=== PATIENT | male | born 1940 | race Caucasian/White ===

== ENCOUNTER → 2016-08-27 | Outpatient (CLI) | payer MEDICARE, OTHER ==
[~2016-08-27] MED LIST: /AMLO25TA OR; /QUIN10TA OR; ACET50TA PO; CALC600T34 PO; CORE25TA PO; FOLI800T PO; GLUC250C5 PO; LIPI10TA PO; MULTTAB4 PO; OMEG12002 PO; PERCOCET PO; TIKO500C PO; VITA500047 PO; WARF2.5T38 PO; nitroglycerine SL
[2016-08-27 09:25] LABS: MEAN CORPUSCULAR HEMOGLOBIN 29.5 pg (27.0-33.0); MEAN CORPUSCULAR VOLUME 89.6 fl (80.0-96.0); RED CELL DISTRIBUTION WIDTH 12.7 % (11.5-14.5); WHITE BLOOD COUNT 4.9 K/mm3 (4.0-10.0)
[2016-08-27 09:34] LABS: ALBUMIN/GLOBULIN RATIO 1.21 (1.00-1.93); BILIRUBIN,TOTAL 0.7 MG/DL (0.2-1.0); CALCIUM LEVEL 8.5 MG/DL (8.8-10.2); CREATININE FOR GFR 1.26 MG/DL (0.70-1.30); FREE T4 1.19 NG/DL (0.76-1.46); GLOMERULAR FILTRATION RATE 59.1 (>42); POTASSIUM SERUM 4.5 MEQ/L (3.5-5.1); TOTAL PROTEIN 7.3 GM/DL (6.4-8.2)
== END ==
LOC: M LAB 08:02
PROVIDERS: ATTEND Physician Assistant
DX: Z00.00 Encounter for general adult medical examination without abnormal findings (principal); R35.1 Nocturia; I48.0 Paroxysmal atrial fibrillation; Z79.01 Long term (current) use of anticoagulants
CPT/HCPCS: 36415; 80053; 84439; 84443; 85027; G0103

== ENCOUNTER → 2016-09-25 | Outpatient (CLI) | payer MEDICARE, OTHER ==
[2016-09-25 09:47] LABS: ANION GAP 7 MEQ/L (8-16); BLOOD UREA NITROGEN 23 MG/DL (7-18); CALCIUM LEVEL 8.5 MG/DL (8.8-10.2); CARBON DIOXIDE LEVEL 28 MEQ/L (21-32); CHLORIDE LEVEL 106 MEQ/L (98-107); CREATININE FOR GFR 1.13 MG/DL (0.70-1.30); GLOMERULAR FILTRATION RATE > 60.0 (>42); GLUCOSE, FASTING 146 MG/DL (83-110); MAGNESIUM LEVEL 2.2 MG/DL (1.8-2.4); POTASSIUM SERUM 4.1 MEQ/L (3.5-5.1); SODIUM LEVEL 141 MEQ/L (136-145)
== END ==
LOC: M LAB 09:04
PROVIDERS: ATTEND Internal Medicine Cardiovascular Disease
DX: I48.91 Unspecified atrial fibrillation (principal)

== ENCOUNTER → 2016-12-28 | Outpatient (CLI) | payer MEDICARE, OTHER ==
[2016-12-28 09:12] LABS: BASO # 0.1 K/mm3 (0.0-0.2); EOS # 0.1 K/mm3 (0.0-0.50); EOS % 1.7 % (0.0-3.0); LARGE UNSTAINED CELL # 0.1 K/mm3 (0.0-0.4); LARGE UNSTAINED CELL % 2.2 % (0.0-4.0); LYMPH # 1.3 K/mm3 (1.5-4.5); LYMPH % 23.3 % (24.0-44.0); MEAN CORPUSCULAR HGB CONC 34.4 g/dl (32.0-36.5); MEAN CORPUSCULAR VOLUME 90.1 fl (80.0-96.0); MONO # 0.3 K/mm3 (0.0-0.8); MONO % 5.7 % (0.0-5.0); NEUTROPHILS # 3.8 K/mm3 (1.8-7.7); NEUTROPHILS % 66.1 % (36.0-66.0); PLATELET COUNT, AUTOMATED 167 k/mm3 (150-450); RED CELL DISTRIBUTION WIDTH 12.8 % (11.5-14.5); WHITE BLOOD COUNT 5.7 K/mm3 (4.0-10.0)
[2016-12-28 09:29] LABS: CHOLESTEROL LEVEL 105 MG/DL (<200); FERRITIN 130 NG/ML (26-388); PERCENT SATURATION 24.3 % (19.7-37.4); TOTAL IRON BINDING CAPACITY 284 UG/DL (250-450); TRIGLYCERIDES LEVEL 92 MG/DL (<150)
[2016-12-28 10:06] LABS: FOLATE > 24.0 NG/ML (>5.4); VITAMIN B12 LEVEL 378 PG/ML (247-911)
== END ==
LOC: M LAB 08:03
PROVIDERS: ATTEND Family Medicine
DX: D64.9 Anemia, unspecified (principal); R78.9 Finding of unspecified substance, not normally found in blood; I10 Essential (primary) hypertension; R73.01 Impaired fasting glucose

== ENCOUNTER 2017-05-07 12:00 | Day surgery (SDC) | payer MEDICARE, OTHER ==
[~2017-05-07] VITALS: Ht 170.2 cm; Wt 73.8 kg
[~2017-05-07 12:00] MED LIST changes: +FISH120012 PO; +LASI20TA PO; +MAGN1CAP PO; +VITA1CAP40 PO; +VITA500T53 PO
[2017-05-07] MEDS ORDERED: PROPOFOL 200 MG/20 ML VIAL As Ordered ONE (12:24)
[2017-05-07] MEDS ORDERED: LIDOCAINE 2% INJ 100 MG/5 ML SDV (FOR ANES.) As Ordered ONE (12:24)
[2017-05-07] MEDS: LR 1,000 ML IV SCH (12:45)
[2017-05-07] MEDS ORDERED: ePHEDrine SULFATE 25 MG/5 ML(5MG/ML) SYRINGE As Ordered ONE (13:24)
--- NOTE | 2017-05-07 14:08 | ROOR ---
Patient Name: Jaskaran Jacobo Procedure Date: 05/07/2017 1:15 PM Date of : 1940 Age: 76 Room: [facility] Gender: Male Note Status: Finalized Procedure: Colonoscopy Indications: High risk colon cancer surveillance: Personal history of sessile serrated colon polyp (less than 10 mm in size) with no dysplasia, Last colonoscopy: June 2014 Providers: Anival Santos MD Referring MD: Catherine HOLDER DO Requesting Provider: Medicines: Monitored Anesthesia Care Complications: No immediate complications. Procedure: Pre-Anesthesia Assessment: - Prior to the procedure, a History and Physical was performed, and patient medications and allergies were reviewed. The patient is competent. The risks and benefits of the procedure and the sedation options and risks were discussed with the patient. All questions were answered and informed consent was obtained. Patient identification and proposed procedure were verified by the physician, the nurse and the anesthesiologist in the procedure room. Mental Status Examination: alert and oriented. Airway Examination: normal oropharyngeal airway and neck mobility. CV Examination: regular rate and rhythm. Prophylactic Antibiotics: The patient does not require prophylactic antibiotics. Prior Anticoagulants: The patient has taken Coumadin (warfarin), last dose was 3 days prior to procedure. ASA Grade Assessment: III - A patient with severe systemic disease. After reviewing the risks and benefits, the patient was deemed in satisfactory condition to undergo the procedure. The anesthesia plan was to use monitored anesthesia care (MAC). Immediately prior to administration of medications, the patient was re-assessed for adequacy to receive sedatives. The heart rate, respiratory rate, oxygen saturations, blood pressure, adequacy of pulmonary ventilation, and response to care were monitored throughout the procedure. The physical status of the patient was re-assessed after the procedure. The Colonoscope was introduced through the anus and advanced to the cecum, identified by appendiceal orifice and ileocecal valve. The colonoscopy was performed without difficulty. The patient tolerated the procedure well. The quality of the bowel preparation was good. Findings: The perianal and digital rectal examinations were normal. Many large-mouthed diverticula were found in the sigmoid colon, descending colon, splenic flexure, transverse colon and hepatic flexure. A 6 mm polyp was found in the proximal transverse colon. The polyp was sessile. The polyp was removed with a hot snare. Resection and retrieval were complete. A 4 mm polyp was found in the mid transverse colon. The polyp was sessile. The polyp was removed with a hot snare. Resection and retrieval were complete. Impression: - Diverticulosis in the sigmoid colon, in the descending colon, at the splenic flexure, in the transverse colon and at the hepatic flexure. - One 6 mm polyp in the proximal transverse colon, removed with a hot snare. Resected and retrieved. - One 4 mm polyp in the mid transverse colon, removed with a hot snare. Resected and retrieved. Recommendation: - Await pathology results. - Discharge patient to home. - Resume previous diet. - Continue present medications. - Telephone endoscopist for pathology results in 1 week. Anival Santos MD 05/07/2017 2:08:33 PM Number of Addenda: 0 Note Initiated On: 05/07/2017 1:15 PM Estimated Blood Loss: Estimated blood loss: none.
[2017-05-07 14:20] VITALS: BP 134/67
== END 2017-05-07 14:25 | disposition home or self-care (01) ==
LOC: M OPP 12:00
PROVIDERS: ATTEND Surgery
DX: Z12.11 Encounter for screening for malignant neoplasm of colon (principal); Z86.010 Personal history of colon polyps; D12.3 Benign neoplasm of transverse colon; K57.30 Diverticulosis of large intestine without perforation or abscess without bleeding; I48.91 Unspecified atrial fibrillation; I25.119 Atherosclerotic heart disease of native coronary artery with unspecified angina pectoris; I34.0 Nonrheumatic mitral (valve) insufficiency; I10 Essential (primary) hypertension; Z95.1 Presence of aortocoronary bypass graft; Z95.2 Presence of prosthetic heart valve; E78.5 Hyperlipidemia, unspecified; Z86.19 Personal history of other infectious and parasitic diseases; M19.90 Unspecified osteoarthritis, unspecified site; R06.83 Snoring; Z85.828 Personal history of other malignant neoplasm of skin; Z87.442 Personal history of urinary calculi; Z96.651 Presence of right artificial knee joint; Z79.01 Long term (current) use of anticoagulants; Z79.899 Other long term (current) drug therapy

== ENCOUNTER → 2017-07-02 | Outpatient (CLI) | payer MEDICARE, OTHER ==
[2017-07-02 13:55] LABS: ALBUMIN 4.2 GM/DL (3.2-5.2); ALBUMIN/GLOBULIN RATIO 1.27 (1.00-1.93); ALKALINE PHOSPHATASE 66 U/L (45-117); ALT/SGPT 23 U/L (12-78); ANION GAP 7 MEQ/L (8-16); AST/SGOT 19 U/L (7-37); BILIRUBIN,TOTAL 0.9 MG/DL (0.2-1.0); BLOOD UREA NITROGEN 28 MG/DL (7-18); CALCIUM LEVEL 8.8 MG/DL (8.8-10.2); CARBON DIOXIDE LEVEL 28 MEQ/L (21-32); CHLORIDE LEVEL 107 MEQ/L (98-107); CREATININE FOR GFR 1.11 MG/DL (0.70-1.30); GLOMERULAR FILTRATION RATE > 60.0 (>42); GLUCOSE, FASTING 105 MG/DL (83-110); MAGNESIUM LEVEL 2.3 MG/DL (1.8-2.4); POTASSIUM SERUM 4.9 MEQ/L (3.5-5.1); SODIUM LEVEL 142 MEQ/L (136-145); TOTAL PROTEIN 7.5 GM/DL (6.4-8.2)
[2017-07-02 14:31] LABS: ESTIMATED AVERAGE GLUCOSE 128 MG/DL (60-110); HEMOGLOBIN A1c 6.1 %
[2017-07-11 16:00] LABS: PSA SCREENING 0.53 NG/ML (< 4.0)
== END ==
LOC: M WUC 09:31
DX: Z00.01 Encounter for general adult medical examination with abnormal findings (principal); I49.9 Cardiac arrhythmia, unspecified; R73.9 Hyperglycemia, unspecified; Z12.5 Encounter for screening for malignant neoplasm of prostate
CPT/HCPCS: 83735

== ENCOUNTER → 2018-04-24 | Day surgery (SDC) | payer MEDICARE, OTHER ==
[~2018-04-24] MED LIST changes: -/AMLO25TA OR; -/QUIN10TA OR; -ACET50TA PO; -CALC600T34 PO; -CORE25TA PO; -FISH120012 PO; -FOLI800T PO; -GLUC250C5 PO; -LASI20TA PO; -LIPI10TA PO; +LR 1,000 ML IV; -MAGN1CAP PO; -MULTTAB4 PO; -OMEG12002 PO; -PERCOCET PO; -TIKO500C PO; -VITA1CAP40 PO; -VITA500047 PO; -VITA500T53 PO; -WARF2.5T38 PO; -nitroglycerine SL
[2018-04-24 06:54] LABS: PROTHROMBIN TIME 26.7 SECONDS (12.1-14.4)
== END | disposition home or self-care (01) ==
LOC: M SDC 06:05
DX: I48.92 Unspecified atrial flutter (principal); Z53.09 Procedure and treatment not carried out because of other contraindication; I49.8 Other specified cardiac arrhythmias
CPT/HCPCS: 93005

== ENCOUNTER → 2018-07-10 | Outpatient (CLI) | payer MEDICARE, OTHER ==
[~2018-07-10] MED LIST changes: +/AMLO25TA OR; +/QUIN10TA OR; +ACET50TA PO; +CALC1TAB26 PO; +CALC600T34 PO; +CORE25TA PO; +CORE6.25 PO; +COUM2.5T17 PO; +FISH120012 PO; +FOLI400T PO; +FOLI800T PO; +GLUC250C5 PO; +LASI20TA3 PO; +LIPI10TA PO; -LR 1,000 ML IV; +MAGN1CAP PO; +MAGN500C2 PO; +MULT1TAB10 PO; +MULTTAB4 PO; +NORV5TAB PO; +OMEG12002 PO; +PERCOCET PO; +TIKO250C PO; +TIKO500C PO; +VITA500047 PO; +VITA50005 PO; +VITA500T53 PO; +WARF2.5T38 PO; +nitroglycerine SL
[2018-07-10 13:40] LABS: BLOOD UREA NITROGEN 24 MG/DL (7-18); CALCIUM LEVEL 8.6 MG/DL (8.8-10.2); CARBON DIOXIDE LEVEL 26 MEQ/L (21-32); CHLORIDE LEVEL 105 MEQ/L (98-107); CREATININE FOR GFR 1.14 MG/DL (0.70-1.30); GLOMERULAR FILTRATION RATE > 60.0 (>42); GLUCOSE, FASTING 101 MG/DL (70-100); MAGNESIUM LEVEL 1.9 MG/DL (1.8-2.4); POTASSIUM SERUM 4.4 MEQ/L (3.5-5.1); SODIUM LEVEL 139 MEQ/L (136-145)
== END ==
LOC: M WUC 10:33
PROVIDERS: ATTEND Internal Medicine Cardiovascular Disease
DX: I25.10 Atherosclerotic heart disease of native coronary artery without angina pectoris (principal); I48.0 Paroxysmal atrial fibrillation

== ENCOUNTER → 2018-08-08 | Outpatient (CLI) | payer MEDICARE, OTHER ==
[2018-08-08 13:17] LABS: BASO % 0.5 % (0.0-1.0); EOS # 0.2 10^3/uL (0.0-0.50); EOS % 2.4 % (0.0-3.0); HEMATOCRIT 34.8 % (42.0-52.0); HEMOGLOBIN 11.9 g/dl (13.5-17.5); LYMPH # 1.4 10^3/uL (1.5-4.5); LYMPH % 22.4 % (24.0-44.0); MEAN CORPUSCULAR HEMOGLOBIN 30.8 pg (27.0-33.0); MEAN CORPUSCULAR HGB CONC 34.2 g/dl (32.0-36.5); MEAN CORPUSCULAR VOLUME 90.2 fl (80.0-96.0); MONO # 0.4 10^3/uL (0.0-0.8); MONO % 6.7 % (0.0-5.0); NEUTROPHILS # 4.3 10^3/uL (1.8-7.7); NEUTROPHILS % 67.8 % (36.0-66.0); PLATELET COUNT, AUTOMATED 175 10^3/uL (150-450); RED BLOOD COUNT 3.86 10^6/uL (4.30-6.10); WHITE BLOOD COUNT 6.3 10^3/uL (4.0-10.0)
[2018-08-08 13:47] LABS: ALBUMIN 3.8 GM/DL (3.2-5.2); ALT/SGPT 25 U/L (12-78); BILIRUBIN,TOTAL 0.6 MG/DL (0.2-1.0); BLOOD UREA NITROGEN 27 MG/DL (7-18); CALCIUM LEVEL 8.5 MG/DL (8.8-10.2); CARBON DIOXIDE LEVEL 26 MEQ/L (21-32); CHLORIDE LEVEL 107 MEQ/L (98-107); CHOLESTEROL LEVEL 110 MG/DL (<200); CREATININE FOR GFR 1.19 MG/DL (0.70-1.30); FREE T4 1.18 NG/DL (0.76-1.46); GLOMERULAR FILTRATION RATE > 60.0 (>42); GLUCOSE, FASTING 110 MG/DL (70-100); HDL CHOLESTEROL 40 MG/DL (>40); LDL CHOLESTEROL 58 MG/DL (<100); NON-HDL-C 70 MG/DL; POTASSIUM SERUM 4.6 MEQ/L (3.5-5.1); SODIUM LEVEL 139 MEQ/L (136-145); TOTAL PROTEIN 7.2 GM/DL (6.4-8.2); TRIGLYCERIDES LEVEL 60 MG/DL (<150)
[2018-08-09 14:09] LABS: PSA TOTAL 0.5 ng/mL (0.0-4.0)
== END ==
LOC: M WUC 08:39
PROVIDERS: ATTEND Physician Assistant
DX: I10 Essential (primary) hypertension (principal); Z79.01 Long term (current) use of anticoagulants; Z12.5 Encounter for screening for malignant neoplasm of prostate; I48.0 Paroxysmal atrial fibrillation; E78.00 Pure hypercholesterolemia, unspecified

== ENCOUNTER → 2019-01-30 | Outpatient (CLI) | payer MEDICARE, OTHER ==
[~2019-01-30] MED LIST changes: -/AMLO25TA OR; -/QUIN10TA OR; +ACCU1TAB OR; -ACET50TA PO; +MAPA500T17 PO; +NORV2TAB OR; +OXYC1TAB23 PO; -PERCOCET PO; +VITA500T17 PO; -VITA500T53 PO
[2019-01-30 12:31] LABS: BASO % 0.5 % (0.0-1.0); EOS # 0.1 10^3/uL (0.0-0.50); EOS % 1.6 % (0.0-3.0); HEMATOCRIT 36.8 % (42.0-52.0); HEMOGLOBIN 12.5 g/dl (13.5-17.5); LYMPH # 1.4 10^3/uL (1.5-4.5); LYMPH % 26.2 % (24.0-44.0); MEAN CORPUSCULAR HEMOGLOBIN 31.6 pg (27.0-33.0); MEAN CORPUSCULAR VOLUME 93.2 fl (80.0-96.0); MONO # 0.4 10^3/uL (0.0-0.8); MONO % 7.8 % (0.0-5.0); NEUTROPHILS # 3.5 10^3/uL (1.8-7.7); NEUTROPHILS % 63.5 % (36.0-66.0); PLATELET COUNT, AUTOMATED 141 10^3/uL (150-450); RED BLOOD COUNT 3.95 10^6/uL (4.30-6.10); WHITE BLOOD COUNT 5.5 10^3/uL (4.0-10.0)
[2019-01-30 12:46] LABS: ALBUMIN 3.8 GM/DL (3.2-5.2); ALT/SGPT 24 U/L (12-78); BILIRUBIN,TOTAL 0.7 MG/DL (0.2-1.0); BLOOD UREA NITROGEN 18 MG/DL (7-18); CALCIUM LEVEL 8.8 MG/DL (8.8-10.2); CARBON DIOXIDE LEVEL 28 MEQ/L (21-32); CHLORIDE LEVEL 106 MEQ/L (98-107); CHOLESTEROL LEVEL 110 MG/DL (<200); CHOLESTEROL RISK RATIO 2.619 (<5); CREATININE FOR GFR 1.07 MG/DL (0.70-1.30); GLOMERULAR FILTRATION RATE > 60.0 (>35); GLUCOSE, FASTING 97 MG/DL (70-100); HDL CHOLESTEROL 42 MG/DL (>40); LDL CHOLESTEROL 50 MG/DL (<100); MAGNESIUM LEVEL 2.2 MG/DL (1.8-2.4); NON-HDL-C 68 MG/DL; POTASSIUM SERUM 4.6 MEQ/L (3.5-5.1); SODIUM LEVEL 140 MEQ/L (136-145); TRIGLYCERIDES LEVEL 88 MG/DL (<150)
== END ==
LOC: M WUC 08:34
PROVIDERS: ATTEND Family Medicine
DX: I10 Essential (primary) hypertension (principal); E78.00 Pure hypercholesterolemia, unspecified; I05.0 Rheumatic mitral stenosis

== ENCOUNTER → 2019-03-25 | Outpatient (CLI) | payer MEDICARE, OTHER ==
[2019-03-25 16:42] LABS: CALCIUM LEVEL 8.9 MG/DL (8.8-10.2); CREATININE FOR GFR 1.31 MG/DL (0.70-1.30); MAGNESIUM LEVEL 2.1 MG/DL (1.8-2.4); POTASSIUM SERUM 4.9 MEQ/L (3.5-5.1)
== END ==
LOC: M WUC 14:27
PROVIDERS: ATTEND Nurse Practitioner Family
DX: I48.91 Unspecified atrial fibrillation (principal)

== ENCOUNTER → 2019-07-29 | Outpatient (CLI) | payer MEDICARE, OTHER ==
[~2019-07-29] MED LIST changes: +ACCU1TAB2 PO; +CARV6.25 PO; +MULTCAP PO; +SPIR-10 PO; +VITA-199 PO
[2019-07-29 09:44] LABS: BASO % 0.4 % (0.0-1.0); EOS # 0.2 10^3/uL (0.0-0.5); EOS % 2.4 % (0.0-3.0); HEMATOCRIT 35.1 % (42.0-52.0); HEMOGLOBIN 11.4 g/dl (13.5-17.5); LYMPH # 1.3 10^3/uL (1.5-5.0); MEAN CORPUSCULAR HEMOGLOBIN 29.8 pg (27.0-33.0); MEAN CORPUSCULAR HGB CONC 32.5 g/dl (32.0-36.5); MEAN CORPUSCULAR VOLUME 91.6 fl (80.0-96.0); MONO # 0.4 10^3/uL (0.0-0.8); MONO % 6.3 % (0.0-5.0); NEUTROPHILS # 4.9 10^3/uL (1.5-8.5); NEUTROPHILS % 71.8 % (36.0-66.0); PLATELET COUNT, AUTOMATED 157 10^3/uL (150-450); RED BLOOD COUNT 3.83 10^6/uL (4.30-6.10); WHITE BLOOD COUNT 6.8 10^3/uL (4.0-10.0)
[2019-07-29 09:55] LABS: INR 2.42; PROTHROMBIN TIME 26.2 SECONDS (11.8-14.0)
[2019-07-29 10:16] LABS: ALBUMIN 3.8 GM/DL (3.2-5.2); ALT/SGPT 19 U/L (12-78); BILIRUBIN,TOTAL 0.7 MG/DL (0.2-1.0); BLOOD UREA NITROGEN 20 MG/DL (7-18); CALCIUM LEVEL 8.8 MG/DL (8.8-10.2); CARBON DIOXIDE LEVEL 27 MEQ/L (21-32); CHLORIDE LEVEL 106 MEQ/L (98-107); CHOLESTEROL LEVEL 111 MG/DL (<200); CHOLESTEROL RISK RATIO 2.707 (<5); CREATININE FOR GFR 1.08 MG/DL (0.70-1.30); GLOMERULAR FILTRATION RATE > 60.0 (>35); GLUCOSE, FASTING 92 MG/DL (70-100); HDL CHOLESTEROL 41 MG/DL (>40); LDL CHOLESTEROL 58 MG/DL (<100); NON-HDL-C 70 MG/DL; POTASSIUM SERUM 4.6 MEQ/L (3.5-5.1); SODIUM LEVEL 139 MEQ/L (136-145); TOTAL PROTEIN 7.2 GM/DL (6.4-8.2); TRIGLYCERIDES LEVEL 60 MG/DL (<150)
[2019-07-31 00:08] LABS: PSA TOTAL 0.4 ng/mL (0.0-4.0)
== END ==
LOC: M WUC 08:18
PROVIDERS: ATTEND Physician Assistant
DX: Z00.00 Encounter for general adult medical examination without abnormal findings (principal); I48.0 Paroxysmal atrial fibrillation; I10 Essential (primary) hypertension; E78.00 Pure hypercholesterolemia, unspecified

== ENCOUNTER 2019-07-30 06:01 | Day surgery (SDC) | payer MEDICARE, OTHER ==
[~2019-07-30] VITALS: Ht 170.2 cm; Wt 72.1 kg
[~2019-07-30 06:01] MED LIST changes: +LR 1,000 ML IV ONE
[2019-07-30 07:00] LABS: INR 2.26; PROTHROMBIN TIME 24.8 SECONDS (11.8-14.0)
[2019-07-30] MEDS ORDERED: LIDOCAINE 2% INJ 100 MG/5 ML SDV (FOR ANES.) As Ordered ONE (07:14)
[2019-07-30] MEDS ORDERED: propofoL 200 MG/20 ML VIAL As Ordered ONE (07:14)
[2019-07-30] MEDS ORDERED: CETACAINE SPRAY 5GM As Ordered ONE (07:24)
[2019-07-30] MEDS ORDERED: LIDOCAINE VISCOUS 2% SOLN 15ML UDC As Ordered ONE (07:24)
[2019-07-30] MEDS ORDERED: fentaNYL 100 MCG/2 ML INJECTION (J3010) As Ordered ONE (07:31)
[2019-07-30] MEDS ORDERED: MIDAZOLAM INJ 2 MG/2 ML VIAL (J2250) As Ordered ONE (07:32)
[2019-07-30] MEDS ORDERED: ePHEDrine SULFATE 25 MG/5 ML(5MG/ML) SYRINGE As Ordered ONE (07:50)
[2019-07-30 08:45] VITALS: BP 122/58
--- NOTE | 2019-07-30 21:08 | RO ---
DATE OF PROCEDURE: 07/30/2019 REFERRING PHYSICIAN: Antonio Pride MD INDICATION: Mitral valve disease. ANESTHESIA: Jose العلي CRNA PROCEDURE: Transesophageal echocardiogram. BRIEF HISTORY Mr. Jacobo is an 78-year-old man who has history of coronary artery bypass grafting and aortic valve replacement in rather distant past. He also has paroxysmal atrial fibrillation. His recent echocardiogram revealed mixed mitral valve disease with combination of stenosis and insufficiency. The quality of transthoracic echocardiogram was not sufficient to adequately estimate severity of mitral regurgitation (MR), but it looked to be potentially severe. There was also moderate pulmonary hypertension and consequently I brought the patient for transesophageal echocardiogram for further assessment of severity of mitral insufficiency. I talked to the patient and his about the procedure on outpatient basis. I explained the rationale and also talked about potential complications. He signed appropriate consent. PROCEDURE NOTE Procedure was performed in the operating room. The patient presented in fasting condition. After appropriate monitors were applied and time-out was taken his posterior pharynx was anesthetized using viscous lidocaine and Cetacaine spray. Bite block was placed. He was then positioned in left lateral decubital position. Probe was introduced into his esophagus and later stomach with minor difficulty. After appropriate images were taken it was withdrawn. There were no immediate complications and the patient tolerated the procedure well. FINDINGS Left ventricle has normal contractility, I do not appreciate any segmental wall motion abnormality and estimate ejection fraction (EF) around 60%. Right ventricle does not appear dilated. Left atrium is severely enlarged. Left atrial appendage is large but free of thrombi. Left interatrial septum is intact based on two-dimensional and color Doppler imaging, but it is bulging to the right. There is very marginal systolic flow reversal in left-sided pulmonary veins, but not in right-sided pulmonary vein. Aortic valve is bioprosthetic. It appears normal based on 2-D imaging and I do not appreciate any stenosis or insufficiency of the valve. Mitral valve is heavily sclerotic and thickened and there is some restriction of mobility. The mean gradient across the valve was 5 and peak 14 mmHg corresponding to mild to moderate or probably moderate mitral stenosis. There is significant mitral insufficiency with MR jet that is centrally oriented. I estimate the degree of severity about moderately severe. There was some minimal reversal of pulmonary flow in left-sided pulmonary veins. Tricuspid valve was relatively poorly visualized but it appears grossly normal. There is mild insufficiency. Unfortunately, quality of TR signal was not sufficient in order to estimate pulmonary artery pressure. Pulmonic valve appears intact. There is no stenosis or insufficiency. No pericardial effusion is present. There is mild atherosclerosis of the thoracic aorta. CONCLUSIONS 1. Preserved LV systolic function. 2. 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 3. Normally functioning bioprosthetic aortic valve. 4. Mild tricuspid insufficiency. 5. Severe left atrial enlargement. 6. Atherosclerosis of thoracic aorta. COMMENT Subacute bacterial endocarditis (SBE) prophylaxis is recommended. I believe that the mitral valve replacement is not yet indicated and will continue medical management. The patient will be seen in followup in 4 months. He was instructed to promptly report any change in his clinical condition. Of note, the patient was in atrial fibrillation during the study.
== END 2019-07-30 09:05 | disposition home or self-care (01) ==
LOC: M SDC 06:01
PROVIDERS: ATTEND Internal Medicine Cardiovascular Disease
DX: I34.2 Nonrheumatic mitral (valve) stenosis (principal); I34.0 Nonrheumatic mitral (valve) insufficiency; Z95.2 Presence of prosthetic heart valve; I36.1 Nonrheumatic tricuspid (valve) insufficiency; I70.0 Atherosclerosis of aorta; I48.0 Paroxysmal atrial fibrillation; Z95.1 Presence of aortocoronary bypass graft; I25.10 Atherosclerotic heart disease of native coronary artery without angina pectoris; I50.9 Heart failure, unspecified; I11.0 Hypertensive heart disease with heart failure; E78.00 Pure hypercholesterolemia, unspecified; I65.29 Occlusion and stenosis of unspecified carotid artery; M16.0 Bilateral primary osteoarthritis of hip; Z79.899 Other long term (current) drug therapy; Z79.01 Long term (current) use of anticoagulants
CPT/HCPCS: 36415; 85610; 93312; 93320; 93325; J2250; J3010

== ENCOUNTER → 2020-01-27 | Outpatient (REF) | payer MEDICARE, OTHER ==
[~2020-01-27] MED LIST changes: +ASPI81TA26 PO; +ATOR1TAB21 PO; +CARV12.5 PO; +FERR324T2 PO; +FOLI1TAB11 PO; -LR 1,000 ML IV ONE; +QUIN1TAB4 PO; +VITA500045 PO; +WARF-18 PO
[2020-02-29 10:40] LABS: BASO % 0.3 % (0.0-1.0); EOS # 0.1 10^3/uL (0.0-0.5); EOS % 1.3 % (0.0-3.0); HEMATOCRIT 33.9 % (42.0-52.0); HEMOGLOBIN 11.4 g/dl (13.5-17.5); LYMPH # 1.1 10^3/uL (1.5-5.0); LYMPH % 18.7 % (24.0-44.0); MEAN CORPUSCULAR HEMOGLOBIN 31.8 pg (27.0-33.0); MEAN CORPUSCULAR HGB CONC 33.6 g/dl (32.0-36.5); MEAN CORPUSCULAR VOLUME 94.4 fl (80.0-96.0); MONO # 0.5 10^3/uL (0.0-0.8); MONO % 9.1 % (0.0-5.0); NEUTROPHILS # 4.2 10^3/uL (1.5-8.5); NEUTROPHILS % 70.3 % (36.0-66.0); PLATELET COUNT, AUTOMATED 138 10^3/uL (150-450); RED BLOOD COUNT 3.59 10^6/uL (4.30-6.10); WHITE BLOOD COUNT 5.9 10^3/uL (4.0-10.0)
[2020-03-13 07:16] LABS: ALBUMIN 3.9 GM/DL (3.2-5.2); BILIRUBIN,TOTAL 1.5 MG/DL (0.2-1.0); CALCIUM LEVEL 8.7 MG/DL (8.8-10.2); CHOLESTEROL RISK RATIO 2.687 (<5); CREATININE FOR GFR 1.41 MG/DL (0.70-1.30); FREE T4 1.27 NG/DL (0.76-1.46); GLOMERULAR FILTRATION RATE 51.4 (>35); HEMOGLOBIN A1c 5.7 %; PERCENT SATURATION 19.9 % (19.7-50.0); THYROID STIMULATING HORMONE 2.38 uIU/ML (0.358-3.740); TOTAL PROTEIN 7.2 GM/DL (6.4-8.2)
== END ==
LOC: M WUC 12:03
PROVIDERS: ATTEND Family Medicine
DX: R73.9 Hyperglycemia, unspecified (principal); D64.9 Anemia, unspecified; I10 Essential (primary) hypertension; I25.10 Atherosclerotic heart disease of native coronary artery without angina pectoris; E78.00 Pure hypercholesterolemia, unspecified

== ENCOUNTER 2020-03-21 14:24 | Emergency (ER) | payer MEDICARE, OTHER ==
[~2020-03-21] VITALS: Ht 170.2 cm; Wt 66.6 kg
[~2020-03-21 14:24] MED LIST changes: -ASPI81TA26 PO; -ATOR1TAB21 PO; -CARV12.5 PO; -FERR324T2 PO; -FOLI1TAB11 PO; -QUIN1TAB4 PO; -VITA500045 PO; -WARF-18 PO
--- NOTE | 2020-03-21 15:29 | REPVR ---
PROCEDURE INFORMATION: Exam: XR Chest, 1 View Exam date and time: 03/21/2020 2:53 PM Age: 79 years old Clinical indication: Chest pain TECHNIQUE: Imaging protocol: XR of the chest Views: 1 view. COMPARISON: No relevant prior studies available. FINDINGS: Lungs: There is vague increased density in the right lower lobe which may be acute or chronic. Pleural space: There is probable chronic blunting the right costophrenic sulcus. Heart/Mediastinum: No significant cardiomegaly. Atherosclerosis in the thoracic aorta. Vasculature: There is evidence of median sternotomy aortic and mitral valve replacement. Bones/joints: Unremarkable. IMPRESSION: No definite acute findings. Vague increased density right lower lobe and blunting the right costophrenic sulcus are most likely postoperative. Electronically signed by: Opal Stapleton On 03/21/2020 15:29:15 PM
[2020-03-21 16:08] LABS: BASO % 0.4 % (0.0-1.0); EOS # 0.1 10^3/uL (0.0-0.5); EOS % 0.6 % (0.0-3.0); HEMOGLOBIN 8.4 g/dl (13.5-17.5); LYMPH # 0.9 10^3/uL (1.5-5.0); LYMPH % 8.7 % (24.0-44.0); MEAN CORPUSCULAR HEMOGLOBIN 29.5 pg (27.0-33.0); MEAN CORPUSCULAR HGB CONC 32.3 g/dl (32.0-36.5); MEAN CORPUSCULAR VOLUME 91.2 fl (80.0-96.0); MONO # 0.9 10^3/uL (0.0-0.8); MONO % 8.7 % (0.0-5.0); NEUTROPHILS # 8.1 10^3/uL (1.5-8.5); PLATELET COUNT, AUTOMATED 250 10^3/uL (150-450); RED BLOOD COUNT 2.85 10^6/uL (4.30-6.10)
[2020-03-21] MEDS ORDERED: ISOVUE-370 76% 100ML VIAL As Ordered ONE (16:11)
[2020-03-21 16:23] LABS: PROTHROMBIN TIME 51.8 SECONDS (12.5-14.3)
[2020-03-21 16:24] LABS: PARTIAL THROMBOPLASTIN TIME 77.3 SECONDS (24.2-38.5)
[2020-03-21 16:51] LABS: ALT/SGPT 346 U/L (12-78); BILIRUBIN,DIRECT 6.7 MG/DL (0.0-0.2); BILIRUBIN,TOTAL 7.9 MG/DL (0.2-1.0); BLOOD UREA NITROGEN 20 MG/DL (7-18); CALCIUM LEVEL 8.5 MG/DL (8.8-10.2); CARBON DIOXIDE LEVEL 19 MEQ/L (21-32); CHLORIDE LEVEL 105 MEQ/L (98-107); CK-MB VALUE MASS 2.2 NG/ML (<3.6); CPK CREATINE PHOSPHOKINASE 42 U/L (39-308); FREE T4 1.47 NG/DL (0.76-1.46); GLOMERULAR FILTRATION RATE > 60.0 (>35); GLUCOSE, FASTING 108 MG/DL (70-100); LIPASE 227 U/L (73-393); MB/CK RELATIVE INDEX 5.24 (< OR =4); NT-PRO BNP 883 PG/ML (<450); POTASSIUM SERUM 4.2 MEQ/L (3.5-5.1); SODIUM LEVEL 133 MEQ/L (136-145); TOTAL PROTEIN 6.8 GM/DL (6.4-8.2); TROPONIN I < 0.02 NG/ML (< 0.10)
--- NOTE | 2020-03-21 17:26 | REPVR ---
PROCEDURE INFORMATION: Exam: CT Abdomen And Pelvis With Contrast Exam date and time: 03/21/2020 3:17 PM Age: 79 years old Clinical indication: Other: Painless jaundace; Additional info: Painless jaundice - bun/cr -18/1.1 TECHNIQUE: Imaging protocol: Computed tomography of the abdomen and pelvis with intravenous contrast. Radiation optimization: All CT scans at this facility use at least one of these dose optimization techniques: automated exposure control; mA and/or kV adjustment per patient size (includes targeted exams where dose is matched to clinical indication); or iterative reconstruction. Contrast material: ISOVUE 370; Contrast volume: 100 ml; Contrast route: INTRAVENOUS (IV); COMPARISON: No relevant prior studies available. FINDINGS: Pleural space: There is consolidation the right lower lobe and a right pleural effusion. Heart: Cardiomegaly and aortic and mitral valve replacements. Liver: There are low-dense hepatic lesions largest measuring 1.4 cm. It measures 13 Hounsfield units and therefore most likely represents is cyst. Gallbladder and bile ducts: Cholecystectomy. Pancreas: There is a 1.3 cm low dense lesion in the pancreatic tail series 201, image 38, series 202, image 45. There are 2 low densities in the pancreatic head measuring 6.6 mm and 1 cm. The pancreatic duct is not dilated measuring 2.8 mm. The common bile duct is enlarged measuring 8 mm which is typical post cholecystectomy. Spleen: The spleen is normal. Adrenals: The adrenal glands are unremarkable. Kidneys and ureters: The kidneys are unremarkable other than left renal cortical cysts largest measuring 1.7 cm. No further workup recommended. Stomach and bowel: There is no evidence of intestinal obstruction. There is marked thickening of the wall of the sigmoid colon with mild pericolonic inflammation and diffuse diverticula. Appendix: No evidence of appendicitis. Intraperitoneal space: Unremarkable. No free air. No significant fluid collection. Vasculature: There is no evidence of an infrarenal abdominal aortic aneurysm. The arteries demonstrates diffuse moderate atherosclerotic calcification. Lymph nodes: Unremarkable. No enlarged lymph nodes. Urinary bladder: The bladder is unremarkable. Reproductive: Unremarkable as visualized. Bones/joints: Skeletal degeneration particularly at the L5-S1 level. Soft tissues: Fat containing right inguinal hernia. IMPRESSION: 1. There is a right pleural effusion with consolidation the right lower lobe which may be due to pneumonia among other etiologies. 2. Marked thickening of the distal sigmoid colonic wall with adjacent inflammation most likely due to diverticulitis. The air bubbles appear to be contained within diverticula or perhaps walled-off without free intraperitoneal air identified. There is also no significant free fluid. 3. There are 3 low-dense lesions in the pancreas which could represent cysts but small cystic masses are not excluded in this patient with painless jaundice. MRI or pancreatic protocol CT could be considered for further evaluation. There also small low-dense hepatic lesions which have more the appearance of cysts than metastatic disease however could also be further evaluated. Electronically signed by: Opal Stapleton On 03/21/2020 17:25:49 PM
[2020-03-21 17:48] LABS: HEPATITIS B SURFACE ANTIGEN NEGATIVE (NEGATIVE)
[2020-03-21 18:03] LABS: INR 5.57
[2020-03-21 18:15] LABS: HEPATITIS C VIRUS ABY INDEX 0.1 INDEX (<0.8)
[2020-03-21 18:16] LABS: HEPATITIS B CORE ANTIBODY IGM NEGATIVE (NEGATIVE)
[2020-03-21 18:18] LABS: HEPATITIS A ANTIBODY IGM NEGATIVE (NEGATIVE)
[2020-03-21] MEDS ORDERED: QUIN1TAB4 PO (19:07)
[2020-03-21] MEDS ORDERED: WARF-18 PO (19:07)
[2020-03-21] MEDS ORDERED: ATOR1TAB21 PO (19:07)
[2020-03-21] MEDS ORDERED: FOLI1TAB11 PO (19:07)
[2020-03-21] MEDS ORDERED: CARV12.5 PO (19:07)
[2020-03-21] MEDS ORDERED: VITA500045 PO (19:07)
[2020-03-21] MEDS ORDERED: FERR324T2 PO (19:07)
[2020-03-21] MEDS ORDERED: ASPI81TA26 PO (19:07)
--- NOTE | 2020-03-21 19:55 | ECGEPIP ---
[facility] - ED Test Date: 2020-03-21 Pat Name: AP MARTIN Department: Room: - Gender: Male Flow Match Sofa Cutter: vivek : 1940 Requested By: Barry Kaye Order Number: [id number] Reading MD: Barry Kaye Measurements Intervals [place] Rate: 79 P: 234 PA: 117 QRS: -7 QRSD: 114 T: 47 QT: 386 QTc: 443 Interpretive Statements POSSIBLE SINUS RHYTHM WITH OCCASIONAL VENTRICULAR PREMATURE COMPLEXES MODERATE INTRAVENTRICULAR CONDUCTION DELAY NONSPECIFIC ST T WAVE CHANGES DELAYED R WAVE PROGRESSION Electronically Signed on 03-21-2020 19:54:41 EDT by Barry Kaye
[2020-03-21 20:00] VITALS: BP 135/55
[2020-03-21 20:19] VITALS: BP 161/71
[2020-03-21 21:26] LABS: LDH LACTATE DEHYDROGENASE 373 U/L (87-241)
[2020-03-21 22:00] VITALS: BP 130/60
--- NOTE | 2020-03-21 22:02 | CR.PDOC ---
General Date of Consultation: Mar 21, 2020 Attending Physician: DENY ANN MD Consultation REASON FOR CONSULTATION/CHIEF COMPLAINT: painless jaundice HISTORY OF PRESENT ILLNESS: Mr. Jacobo is a pleasant 79 yo M with a hx of rheumatic heart disease, atrial fibrillation, HTN, CAD? (S/p CABG?), aortic valve replacement and recent mitral valve replacement at [facility] in [place] 2 weeks ago. Per patient report, he received 2 units of pRBC post- operatively. He presents to the [facility] ED with painless jaundice, which he first noticed 4 days ago. Lab work is remarkable for WBC 9.2, hemoglobin 9.2, h ematocrit 28.6. Total bilirubin 7.9. Direct bilirubin 6.7. AST 243. PLT 346. Alkaline phosphatase 995. Hepatitis panel negative. INR 5.57. PT 51.8. APTT 77.3. CT findings concerning for liver and pancreatic masses, which are better characterized with MR imaging. ALLERGIES: Please see below. HOME MEDICATIONS: Please see below. PAST MEDICAL HISTORY: Rheumatic heart disease Atrial fibrillation HTN PAST SURGICAL HISTORY: Mitral valve replacement (03/06/2020) Aortic valve replacement (2000) CABG? FAMILY HISTORY: patient reports cardiac history in famiy SOCIAL HISTORY: Patient denies smoking Patient denies etoh use Patient denies illicit drug use REVIEW OF SYSTEMS: CONSTITUTIONAL: patient denies fevers, chills HEENT: denies blurred vision CARDIOVASCULAR: patient denies chest pain, palpitations. RESPIRATORY: patient denies shortness of breath, cough, hemoptysis. GASTROINTESTINAL: patient denies abdominal pain, n/v/d, blood in stool. GENITOURINARY: patient denies dysuria, discharge. SKIN: jaundiced MUSCULOSKELETAL: patient denies joint pain, neck pain. NEUROLOGICAL: patient denies focal weakness, numbness, seizures. PSYCHIATRIC: patient denies SI/HI. ENDOCRINE: patient denies polyuria, heat intolerance, cold intolerance. HEMATOLOGIC/LYMPHATIC: patient denies easy bruising. PHYSICAL EXAMINATION: VITAL SIGNS: please see below General: NAD, comfortable HEENT: PERRLA, EOMI, scleral icterus Neck: supple, normal ROM, no JVD Respiratory: lungs CTAB, no wheeze, no rales, no crackles CVS: RRR, normal S1, S2, no murmurs Abdo: soft, liver is palpable below costal margin, no destension, BS+ Skin: jaundiced Extremities: no edema, pulses 2+ MSK: no joint deformities, normal ROM Neuro: no focal neuro deficits, moving all 4 extremities, CN2-12 intact. Strength 5/5 in all 4 extremities. No nystagmus. Psych: calm, cooperative, AAO x 3 LABORATORY DATA: Please see below. IMAGING: FINDINGS: CXR (03/21/20): Lungs: There is vague increased density in the right lower lobe which may be acute or chronic. Pleural space: There is probable chronic blunting the right costophrenic sulcus. Heart/Mediastinum: No significant cardiomegaly. Atherosclerosis in the thoracic aorta. Vasculature: There is evidence of median sternotomy aortic and mitral valve replacement. Bones/joints: Unremarkable. IMPRESSION: No definite acute findings. Vague increased density right lower lobe and blunting the right costophrenic sulcus are most likely postoperative. CT Abdomen and Pelvis with Contrast (03/21/20): FINDINGS: Pleural space: There is consolidation the right lower lobe and a right pleural effusion. Heart: Cardiomegaly and aortic and mitral valve replacements. Liver: There are low-dense hepatic lesions largest measuring 1.4 cm. It measures 13 Hounsfield units and therefore most likely represents is cyst. Gallbladder and bile ducts: Cholecystectomy. Pancreas: There is a 1.3 cm low dense lesion in the pancreatic tail series 201, image 38, series 202, image 45. There are 2 low densities in the pancreatic head measuring 6.6 mm and 1 cm. The pancreatic duct is not dilated measuring 2.8 mm. The common bile duct is enlarged measuring 8 mm which is typical post cholecystectomy. Spleen: The spleen is normal. Adrenals: The adrenal glands are unremarkable. Kidneys and ureters: The kidneys are unremarkable other than left renal cortical cysts largest measuring 1.7 cm. No further workup recommended. Stomach and bowel: There is no evidence of intestinal obstruction. There is marked thickening of the wall of the sigmoid colon with mild pericolonic inflammation and diffuse diverticula. Appendix: No evidence of appendicitis. Intraperitoneal space: Unremarkable. No free air. No significant fluid collection. Vasculature: There is no evidence of an infrarenal abdominal aortic aneurysm. The arteries demonstrates diffuse moderate atherosclerotic calcification. Lymph nodes: Unremarkable. No enlarged lymph nodes. Urinary bladder: The bladder is unremarkable. Reproductive: Unremarkable as visualized. Bones/joints: Skeletal degeneration particularly at the L5-S1 level. Soft tissues: Fat containing right inguinal hernia. IMPRESSION: 1. There is a right pleural effusion with consolidation the right lower lobe which may be due to pneumonia among other etiologies. 2. Marked thickening of the distal sigmoid colonic wall with adjacent inflammation most likely due to diverticulitis. The air bubbles appear to be contained within diverticula or perhaps walled-off without free intraperitoneal air identified. There is also no significant free fluid. 3. There are 3 low-dense lesions in the pancreas which could represent cysts but small cystic masses are not excluded in this patient with painless jaundice. MRI or pancreatic protocol CT could be considered for further evaluation. There also small low-dense hepatic lesions which have more the appearance of cysts than metastatic disease however could also be further evaluated. ASSESSMENT/PLAN: Mr. Jacobo is a pleasant 79 yo M with a hx of rheumatic heart disease, atrial fibrillation, HTN, CAD? (S/p CABG?), aortic valve replacement and recent mitral valve replacement at [facility] in [place] 2 weeks ago. He presents to the [facility] ED with painless jaundice, which he first noticed 4 days ago. Hgb on arrival 8.4, given extensive cardiac history, patient was transfused in ER 1 unit prbc, after crossmatching. #Painless jaundice: lab work concerning for significant transaminitis, and direct and indirect hyperbilirubinemia. CT abdomen does not show evidence for obstruction of the CBD/extrahepatic biliary circulation and the pancreatic duct. CT does indicate low-density hepatic lesions as well as pancreatic head and tail lesions. CBD (8mm) and pancreatic duct (2.8mm) are not dilated. I discussed the patient with Dr. Miller. Given lack of mass effect/obstruction on extrahepatic biliary circulation, ampula, pancreatic ducts, there is concern for intrahepatic cholestasis, possibly related to liver cysts, which may possibly be evidence for malignant/metastatic disease. Recommendation for transfer to facility with hepatology service or available on-call GI service for high level of care and workup. Further, onset of painless jaundice following recent cardiac surgery (ie mitral valve replacement) and blood transfusion post-operatively poses additional concern for a delayed hemolytic transfusion reaction. LDH is elevated at 373. However, given concerning CT imaging findings, it is my clinical judgment that urgent GI evaluation and further imaging with MR imaging is warranted. I discussed this with the patient and his . They agree with decision to transfer. I discussed my concerns with the ED attending and they agree with transfer. ED will coordinate transfer for higher level care. #suspected diverticulitis on CT #R pleural effusion Vital Signs/I&O Vital Signs Date Time Temp Pulse Resp B/P (MAP) Pulse Ox O2 Delivery O2 Flow Rate FiO2 03/21/20 21:00 131/61 (84) 03/21/20 20:48 85 03/21/20 20:19 98.1 18 97 Room Air Laboratory Data Labs 24H Laboratory Tests 2 03/21/20 15:34: Immature Granulocyte % (Auto) 0.6, Neutrophils (%) (Auto) 81.0H, Lymphocytes (%) (Auto) 8.7L, Monocytes (%) (Auto) 8.7H, Eosinophils (%) (Auto) 0.6, Basophils (%) (Auto) 0.4, Neutrophils # (Auto) 8.1, Lymphocytes # (Auto) 0.9L, Monocytes # (Auto) 0.9H, Eosinophils # (Auto) 0.1, Basophils # (Auto) 0.0, Nucleated Red Blood Cells % (auto) 0.0, Prothrombin Time 51.8H, Prothromb Time International Ratio 5.57*H, Activated Partial Thromboplast Time 77.3H, Anion Gap 9, Glomerular Filtration Rate > 60.0, Calcium Level 8.5L, Total Bilirubin 7.9H, Direct Bilirubin 6.7H, Aspartate Amino Transf (AST/SGOT) 243H, Alanine Aminotransferase (ALT/SGPT) 346H, Alkaline Phosphatase 995H, Total Creatine Kinase 42, Creatine Kinase MB 2.2, Creatine Kinase MB Relative Index 5.24H, Troponin I < 0.02, EY-Gqa-J-Type Natriuretic Peptide 883H, Total Protein 6.8, Albumin 3.0L, Albumin/Globulin Ratio 0.8, Lipase 227, Thyroid Stimulating Hormone (TSH) 1.410, Free Thyroxine 1.47H, Hepatitis A IgM Antibody NEGATIVE, Hepatitis B Surface Antigen NEGATIVE, Hepatitis B Core IgM Antibody NEGATIVE, Hepatitis C Antibody Index 0.1 CBC/BMP Laboratory Tests 03/21/20 15:34 Microbiology Microbiology 03/21/20 Blood Culture, Received Pending Allergies Coded Allergies: No Known Allergies (Verified , 07/22/19) Home Medications Scheduled Aspirin (Aspirin EC) 81 Mg Tablet.dr, 81 MG PO DAILY, (Reported) Atorvastatin Calcium (Atorvastatin Calcium) 20 Mg Tablet, 30 MG PO QHS, (Reported) PCP TOLD PT TO HOLD ON 03/18 Calcium Carbonate/Vitamin D3 (Calcium 600-Vit D3 800 Tablet) 1 Tab Tab, 1 TAB PO DAILY, (Reported) Carvedilol (Carvedilol) 12.5 Mg Tablet, 12.5 MG PO BID, (Reported) Cyanocobalamin (Vitamin B-12) (Vitamin B-12) 500 Mcg Tab, 500 MCG PO DAILY, (Reported) Ergocalciferol (Vitamin D2) (Vitamin D2) 1,250 Mcg Capsule, 1,250 MCG PO 1XWK, (Reported) SATURDAY MORNINGS Ferrous Sulfate (Ferrous Sulfate) 324 Mg Tablet.dr, 324 MG PO DAILY, (Reported) Folic Acid (Folic Acid) 1 Mg Tablet, 1 MG PO DAILY, (Reported) Furosemide (Lasix) 20 Mg Tab, 20 MG PO DAILY, (Reported) Multivitamin (Multivitamins) 1 Each Capsule, 1 CAP PO DAILY, (Reported) Quinapril Hcl (Quinapril HCl) 40 Mg Tablet, 40 MG PO DAILY, (Reported) Spironolactone (Spironolactone) 25 Mg Tablet, 12.5 MG PO DAILY, (Reported) Warfarin Sodium (Warfarin Sodium) 2.5 Mg Tablet, 2.5 MG PO DAILY, (Reported) PCP TOLD PT TO HOLD ON 03/18 DENY ANN MD Mar 21, 2020 22:02
[2020-03-22 01:44] VITALS: BP 137/67
== END 2020-03-22 01:52 | disposition short-term general hospital (02) ==
LOC: M ED 14:24
DX: R17 Unspecified jaundice (principal); J91.8 Pleural effusion in other conditions classified elsewhere; K86.9 Disease of pancreas, unspecified; K63.89 Other specified diseases of intestine; D64.9 Anemia, unspecified; R74.01 Elevation of levels of liver transaminase levels; I48.91 Unspecified atrial fibrillation; I10 Essential (primary) hypertension; Z87.442 Personal history of urinary calculi; Z95.4 Presence of other heart-valve replacement; Z79.82 Long term (current) use of aspirin; Z79.01 Long term (current) use of anticoagulants; Z79.899 Other long term (current) drug therapy
CPT/HCPCS: 36415; 36430; 71045; 74177; 80053; 80076; 82150; 82550; 82553; 83010; 83615; 83690; 83880; 84439; 84443; 84484; 85025; 85027; 85610; 85730; 86705; 86709; 86803; 86850; 86900; 86901; 86920; 87040; 87340; 93005; 93041; 94760; 99285; P9016; Q9967; U0002

== ENCOUNTER → 2020-03-21 | Outpatient (CLI) | payer MEDICARE, OTHER ==
[2020-03-21 11:30] LABS: HEMATOCRIT 28.6 % (42.0-52.0); HEMOGLOBIN 9.2 g/dl (13.5-17.5); MEAN CORPUSCULAR HEMOGLOBIN 30.1 pg (27.0-33.0); MEAN CORPUSCULAR HGB CONC 32.2 g/dl (32.0-36.5); MEAN CORPUSCULAR VOLUME 93.5 fl (80.0-96.0); PLATELET COUNT, AUTOMATED 264 10^3/uL (150-450); RED BLOOD COUNT 3.06 10^6/uL (4.30-6.10); WHITE BLOOD COUNT 9.2 10^3/uL (4.0-10.0)
[2020-03-21 11:41] LABS: PROTHROMBIN TIME 52.8 SECONDS (12.5-14.3)
[2020-03-21 12:09] LABS: ALBUMIN 2.8 GM/DL (3.2-5.2); ALT/SGPT 339 U/L (12-78); AMYLASE 99 U/L (25-115); BILIRUBIN,TOTAL 7.2 MG/DL (0.2-1.0); BLOOD UREA NITROGEN 18 MG/DL (7-18); CALCIUM LEVEL 8.6 MG/DL (8.8-10.2); CARBON DIOXIDE LEVEL 22 MEQ/L (21-32); CHLORIDE LEVEL 103 MEQ/L (98-107); CREATININE FOR GFR 1.16 MG/DL (0.70-1.30); GLOMERULAR FILTRATION RATE > 60.0 (>35); GLUCOSE, FASTING 115 MG/DL (70-100); LIPASE 326 U/L (73-393); SODIUM LEVEL 130 MEQ/L (136-145); TOTAL PROTEIN 7.3 GM/DL (6.4-8.2)
[2020-03-21 13:42] LABS: INR 5.7
== END ==
LOC: M LAB 10:59
PROVIDERS: ATTEND Nurse Practitioner
DX: R17 Unspecified jaundice (principal)

== ENCOUNTER → 2020-03-28 | Outpatient (CLI) | payer MEDICARE, OTHER ==
[~2020-03-28] MED LIST changes: +ASPI81TA26 PO; +ATOR1TAB21 PO; +CARV12.5 PO; +FERR324T2 PO; +FOLI1TAB11 PO; +QUIN1TAB4 PO; +VITA500045 PO; +WARF-18 PO
[2020-03-28 17:16] LABS: HEMATOCRIT 29.8 % (42.0-52.0); HEMOGLOBIN 9.8 g/dl (13.5-17.5); MEAN CORPUSCULAR HEMOGLOBIN 29.9 pg (27.0-33.0); MEAN CORPUSCULAR HGB CONC 32.9 g/dl (32.0-36.5); MEAN CORPUSCULAR VOLUME 90.9 fl (80.0-96.0); PLATELET COUNT, AUTOMATED 229 10^3/uL (150-450); RED BLOOD COUNT 3.28 10^6/uL (4.30-6.10); WHITE BLOOD COUNT 9.4 10^3/uL (4.0-10.0)
[2020-03-28 17:24] LABS: INR 1.32; PROTHROMBIN TIME 16.7 SECONDS (12.5-14.3)
[2020-03-28 17:25] LABS: PARTIAL THROMBOPLASTIN TIME 35.7 SECONDS (24.2-38.5)
[2020-03-28 18:14] LABS: ALBUMIN 2.6 GM/DL (3.2-5.2); ALT/SGPT 331 U/L (12-78); BILIRUBIN,DIRECT 9.1 MG/DL (0.0-0.2); BILIRUBIN,TOTAL 11.2 MG/DL (0.2-1.0); BLOOD UREA NITROGEN 32 MG/DL (7-18); CALCIUM LEVEL 8.6 MG/DL (8.8-10.2); CARBON DIOXIDE LEVEL 23 MEQ/L (21-32); CHLORIDE LEVEL 105 MEQ/L (98-107); CREATININE FOR GFR 1.23 MG/DL (0.70-1.30); GLOMERULAR FILTRATION RATE > 60.0 (>35); GLUCOSE, FASTING 112 MG/DL (70-100); LIPASE 274 U/L (73-393); POTASSIUM SERUM 4.4 MEQ/L (3.5-5.1); SODIUM LEVEL 136 MEQ/L (136-145); TOTAL PROTEIN 6.7 GM/DL (6.4-8.2)
== END ==
LOC: M LAB 16:08
PROVIDERS: ATTEND Physician Assistant
DX: D64.9 Anemia, unspecified (principal); R94.5 Abnormal results of liver function studies; Z79.01 Long term (current) use of anticoagulants

== ENCOUNTER → 2020-03-28 | Outpatient (CLI) | payer MEDICARE, OTHER ==
[2020-03-28 18:14] LABS: ALBUMIN 2.6 GM/DL (3.2-5.2); BILIRUBIN,DIRECT 9.5 MG/DL (0.0-0.2); BILIRUBIN,TOTAL 11.2 MG/DL (0.2-1.0); TOTAL PROTEIN 6.9 GM/DL (6.4-8.2)
== END ==
LOC: M LAB 16:12
PROVIDERS: ATTEND Internal Medicine Cardiovascular Disease
DX: R94.5 Abnormal results of liver function studies (principal)

== ENCOUNTER → 2020-04-22 | Outpatient (CLI) | payer MEDICARE, OTHER ==
--- NOTE | 2020-04-22 09:47 | REP ---
INDICATION: RIGHT FOOT DROP AFTER HEART SURGERY, EVAL CVA FILE ROOM. COMPARISON: None. TECHNIQUE: Helical scanning is acquired. 5 mm axial images were reformatted. Coronal MPR images were generated. FINDINGS: Bone window settings demonstrate an intact bony calvarium. There is no evidence of skull fracture or incidental bony calvarial lesion. The visualized paranasal sinuses appear clear. No intraorbital abnormality is seen. On soft tissue window setting images; the lateral, third, and fourth ventricles are normal in size and position. Rene-white differentiation pattern is normal above and below the tentorium. There are is no evidence of intracranial hemorrhage. No mass, edema, infarction, or midline shift is seen. No extra-axial fluid collection is appreciated. There is minimal generalized volume loss. Vascular calcification is noted in the distal vertebral and internal carotid arteries. IMPRESSION: Minimal generalized volume loss and vascular calcification. No infarct, bleed, or mass is seen.. <Electronically signed by Hung Staley > 04/22/20 [id number]
== END ==
LOC: M RAD 07:44
PROVIDERS: ATTEND Physician Assistant
DX: M21.371 Foot drop, right foot (principal)

== ENCOUNTER → 2020-08-16 | Outpatient (CLI) | payer MEDICARE, OTHER ==
[~2020-08-16] MED LIST changes: -FOLI400T PO; +FOLI400T13 PO
[2020-08-16 10:22] LABS: BASO % 0.5 % (0.0-1.0); EOS # 0.2 10^3/uL (0.0-0.5); HEMATOCRIT 36.8 % (42.0-52.0); HEMOGLOBIN 11.9 g/dl (13.5-17.5); LYMPH # 1.5 10^3/uL (1.5-5.0); LYMPH % 26.5 % (24.0-44.0); MEAN CORPUSCULAR HEMOGLOBIN 29.8 pg (27.0-33.0); MEAN CORPUSCULAR HGB CONC 32.3 g/dl (32.0-36.5); MEAN CORPUSCULAR VOLUME 92.2 fl (80.0-96.0); MONO # 0.4 10^3/uL (0.0-0.8); MONO % 7.4 % (2.0-8.0); NEUTROPHILS # 3.5 10^3/uL (1.5-8.5); NEUTROPHILS % 62.2 % (36.0-66.0); PLATELET COUNT, AUTOMATED 128 10^3/uL (150-450); RED BLOOD COUNT 3.99 10^6/uL (4.30-6.10); WHITE BLOOD COUNT 5.7 10^3/uL (4.0-10.0)
[2020-08-16 10:33] LABS: INR 2.55
[2020-08-16 10:53] LABS: ALBUMIN 3.8 GM/DL (3.2-5.2); ALT/SGPT 28 U/L (12-78); BILIRUBIN,TOTAL 0.5 MG/DL (0.2-1.0); BLOOD UREA NITROGEN 23 MG/DL (7-18); CALCIUM LEVEL 8.5 MG/DL (8.8-10.2); CARBON DIOXIDE LEVEL 29 MEQ/L (21-32); CHLORIDE LEVEL 110 MEQ/L (98-107); CHOLESTEROL LEVEL 116 MG/DL (<200); CHOLESTEROL RISK RATIO 2.761 (<5); CREATININE FOR GFR 1.16 MG/DL (0.70-1.30); FREE T4 0.95 NG/DL (0.76-1.46); GLOMERULAR FILTRATION RATE > 60.0 (>35); GLUCOSE, FASTING 100 MG/DL (70-100); HDL CHOLESTEROL 42 MG/DL (>40); LDL CHOLESTEROL 62 MG/DL (<100); NON-HDL-C 74 MG/DL; POTASSIUM SERUM 4.9 MEQ/L (3.5-5.1); SODIUM LEVEL 141 MEQ/L (136-145); TOTAL PROTEIN 7.5 GM/DL (6.4-8.2); TRIGLYCERIDES LEVEL 59 MG/DL (<150)
== END ==
LOC: M WUC 08:37
PROVIDERS: ATTEND Physician Assistant
DX: I48.0 Paroxysmal atrial fibrillation (principal); I10 Essential (primary) hypertension; E78.00 Pure hypercholesterolemia, unspecified

== ENCOUNTER → 2020-11-03 | Outpatient (CLI) | payer MEDICARE, OTHER ==
[2020-11-03 14:20] LABS: CA19-9 TUMOR MARKER,CARBOHYDRA 5.1 U/ML (<35.0)
== END ==
LOC: M WUC 08:50
PROVIDERS: ATTEND Nurse Practitioner Family
DX: K86.3 Pseudocyst of pancreas (principal)

== ENCOUNTER → 2021-02-09 | Outpatient (REF) | payer MEDICARE, OTHER | LOC: M LAB REF 10:25 | PROVIDERS: ATTEND Family Medicine | DX: R19.7 Diarrhea, unspecified (principal) ==

== ENCOUNTER → 2021-03-15 | Outpatient (CLI) | payer MEDICARE, OTHER ==
--- NOTE | 2021-03-15 14:52 | REP ---
INDICATION: Assess stenosis TECHNIQUE: Carotid ultrasonography was performed bilaterally FINDINGS: Right: CCA systolic: 94.5 centimeters/second CCA diastolic: 10.4 centimeters/second ICA systolic: 150.1 centimeters/second ICA diastolic: 28.2 centimeters/second ICA CCA ratio: 1.6 Left: CCA systolic: 69.7 centimeters/second CCA diastolic: 16.2 centimeters/second ICA systolic: 134.0 centimeters/second ICA diastolic: 40.0 centimeters/second ICA CCA ratio: 1.9 Vertebral artery: Right: Antegrade flow left: Antegrade flow Patchy echogenic material is seen along the carotid arterial negro some of which casts and acoustic shadow. 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 This is secondary to both calcified and noncalcified atheromatous plaque formation. <Electronically signed by Giles Jensen > 03/15/21 [id number]
== END ==
LOC: M RAD 14:07
PROVIDERS: ATTEND Internal Medicine Cardiovascular Disease
DX: I65.23 Occlusion and stenosis of bilateral carotid arteries (principal)

== ENCOUNTER → 2021-06-23 | Outpatient (CLI) | payer MEDICARE, OTHER ==
[2021-06-23 12:00] LABS: BASO % 0.1 % (0.0-1.0); EOS % 0.6 % (0.0-3.0); HEMATOCRIT 35.2 % (42.0-52.0); HEMOGLOBIN 11.8 g/dl (13.5-17.5); LYMPH # 1.3 10^3/uL (1.5-5.0); LYMPH % 18.7 % (24.0-44.0); MEAN CORPUSCULAR HEMOGLOBIN 31.4 pg (27.0-33.0); MEAN CORPUSCULAR HGB CONC 33.5 g/dl (32.0-36.5); MEAN CORPUSCULAR VOLUME 93.6 fl (80.0-96.0); MONO # 0.6 10^3/uL (0.0-0.8); NEUTROPHILS % 72.3 % (36.0-66.0); PLATELET COUNT, AUTOMATED 130 10^3/uL (150-450); RED BLOOD COUNT 3.76 10^6/uL (4.30-6.10); WHITE BLOOD COUNT 6.9 10^3/uL (4.0-10.0)
[2021-06-23 12:45] LABS: ALBUMIN 3.8 GM/DL (3.2-5.2); CALCIUM LEVEL 8.9 MG/DL (8.8-10.2); CREATININE FOR GFR 1.4 MG/DL (0.70-1.30); GLOMERULAR FILTRATION RATE 51.7 (>35); POTASSIUM SERUM 4.7 MEQ/L (3.5-5.1); TOTAL PROTEIN 7.3 GM/DL (6.4-8.2)
== END ==
LOC: M LAB 11:09
PROVIDERS: ATTEND Family Medicine
DX: R19.7 Diarrhea, unspecified (principal)

== ENCOUNTER → 2021-06-24 | Outpatient (CLI) | payer MEDICARE, OTHER | LOC: M LABSMTC 13:21 | PROVIDERS: ATTEND Pediatrics | DX: Z20.822 Contact with and (suspected) exposure to COVID-19 (principal) | CPT/HCPCS: C9803; U0003 ==

== ENCOUNTER → 2021-06-29 | Outpatient (REF) | payer MEDICARE, OTHER | LOC: M LAB REF 11:05 | PROVIDERS: ATTEND Internal Medicine Gastroenterology | DX: R19.7 Diarrhea, unspecified (principal); K92.1 Melena; R10.84 Generalized abdominal pain ==

== ENCOUNTER → 2021-08-11 | Outpatient (CLI) | payer MEDICARE, OTHER ==
[2021-08-11 09:44] LABS: BASO % 0.6 % (0.0-1.0); EOS # 0.1 10^3/uL (0.0-0.5); HEMATOCRIT 34.9 % (42.0-52.0); HEMOGLOBIN 11.5 g/dl (13.5-17.5); LYMPH # 1.4 10^3/uL (1.5-5.0); LYMPH % 22.2 % (24.0-44.0); MEAN CORPUSCULAR HEMOGLOBIN 30.3 pg (27.0-33.0); MEAN CORPUSCULAR VOLUME 92.1 fl (80.0-96.0); MONO # 0.5 10^3/uL (0.0-0.8); NEUTROPHILS # 4.4 10^3/uL (1.5-8.5); NEUTROPHILS % 67.9 % (36.0-66.0); PLATELET COUNT, AUTOMATED 158 10^3/uL (150-450); RED BLOOD COUNT 3.79 10^6/uL (4.30-6.10); WHITE BLOOD COUNT 6.4 10^3/uL (4.0-10.0)
[2021-08-11 10:16] LABS: ALBUMIN 3.8 GM/DL (3.2-5.2); ALT/SGPT 28 U/L (12-78); BILIRUBIN,TOTAL 0.6 MG/DL (0.2-1.0); BLOOD UREA NITROGEN 20 MG/DL (7-18); CALCIUM LEVEL 8.5 MG/DL (8.8-10.2); CARBON DIOXIDE LEVEL 27 MEQ/L (21-32); CHLORIDE LEVEL 110 MEQ/L (98-107); CHOLESTEROL LEVEL 101 MG/DL (<200); CHOLESTEROL RISK RATIO 2.404 (<5); CREATININE FOR GFR 1.15 MG/DL (0.70-1.30); FREE T4 1.09 NG/DL (0.76-1.46); GLOMERULAR FILTRATION RATE > 60.0 (>35); GLUCOSE, FASTING 102 MG/DL (70-100); HDL CHOLESTEROL 42 MG/DL (>40); LDL CHOLESTEROL 44 MG/DL (<100); NON-HDL-C 59 MG/DL; POTASSIUM SERUM 4.7 MEQ/L (3.5-5.1); SODIUM LEVEL 140 MEQ/L (136-145); TRIGLYCERIDES LEVEL 77 MG/DL (<150)
[2021-08-14 14:09] LABS: PSA TOTAL 0.6 ng/mL (0.0-4.0)
== END ==
LOC: M WUC 08:14
PROVIDERS: ATTEND Nurse Practitioner Adult Health
DX: Z00.00 Encounter for general adult medical examination without abnormal findings (principal); I48.0 Paroxysmal atrial fibrillation; I10 Essential (primary) hypertension

== ENCOUNTER → 2021-08-24 | Outpatient (CLI) | payer MEDICARE, OTHER ==
[2021-08-24 09:39] LABS: BASO % 0.4 % (0.0-1.0); EOS # 0.1 10^3/uL (0.0-0.5); EOS % 1.7 % (0.0-3.0); HEMATOCRIT 37.4 % (42.0-52.0); HEMOGLOBIN 12.3 g/dl (13.5-17.5); LYMPH # 1.7 10^3/uL (1.5-5.0); LYMPH % 20.4 % (24.0-44.0); MEAN CORPUSCULAR HEMOGLOBIN 30.4 pg (27.0-33.0); MEAN CORPUSCULAR HGB CONC 32.9 g/dl (32.0-36.5); MEAN CORPUSCULAR VOLUME 92.3 fl (80.0-96.0); MONO # 0.6 10^3/uL (0.0-0.8); MONO % 7.5 % (2.0-8.0); NEUTROPHILS # 5.8 10^3/uL (1.5-8.5); NEUTROPHILS % 69.8 % (36.0-66.0); PLATELET COUNT, AUTOMATED 161 10^3/uL (150-450); RED BLOOD COUNT 4.05 10^6/uL (4.30-6.10); WHITE BLOOD COUNT 8.2 10^3/uL (4.0-10.0)
[2021-08-24 10:07] LABS: ALBUMIN 4.2 GM/DL (3.2-5.2); BILIRUBIN,TOTAL 0.9 MG/DL (0.2-1.0); CALCIUM LEVEL 9.2 MG/DL (8.8-10.2); CREATININE FOR GFR 1.26 MG/DL (0.70-1.30); GLOMERULAR FILTRATION RATE 58.3 (>35); PERCENT SATURATION 26.4 % (19.7-50.0); POTASSIUM SERUM 4.7 MEQ/L (3.5-5.1); TOTAL PROTEIN 7.8 GM/DL (6.4-8.2)
== END ==
LOC: M WUC 08:04
PROVIDERS: ATTEND Nurse Practitioner Adult Health
DX: I10 Essential (primary) hypertension (principal); I25.10 Atherosclerotic heart disease of native coronary artery without angina pectoris; D64.9 Anemia, unspecified

== ENCOUNTER → 2022-02-26 | Outpatient (CLI) | payer MEDICARE, OTHER ==
[2022-02-26 09:56] LABS: BASO # 0.1 10^3/uL (0.0-0.2); BASO % 0.7 % (0.0-1.0); EOS # 0.5 10^3/uL (0.0-0.5); EOS % 7.1 % (0.0-3.0); HEMATOCRIT 34.7 % (42.0-52.0); HEMOGLOBIN 11.3 g/dl (13.5-17.5); LYMPH # 1.4 10^3/uL (1.5-5.0); MEAN CORPUSCULAR HEMOGLOBIN 30.4 pg (27.0-33.0); MEAN CORPUSCULAR HGB CONC 32.6 g/dl (32.0-36.5); MEAN CORPUSCULAR VOLUME 93.3 fl (80.0-96.0); MONO # 0.6 10^3/uL (0.0-0.8); MONO % 7.7 % (2.0-8.0); NEUTROPHILS # 4.9 10^3/uL (1.5-8.5); NEUTROPHILS % 65.2 % (36.0-66.0); PLATELET COUNT, AUTOMATED 169 10^3/uL (150-450); RED BLOOD COUNT 3.72 10^6/uL (4.30-6.10); WHITE BLOOD COUNT 7.6 10^3/uL (4.0-10.0)
[2022-02-26 12:21] LABS: ALBUMIN 3.9 GM/DL (3.2-5.2); ALT/SGPT 19 U/L (12-78); BILIRUBIN,TOTAL 0.7 MG/DL (0.2-1.0); BLOOD UREA NITROGEN 27 MG/DL (7-18); CARBON DIOXIDE LEVEL 27 MEQ/L (21-32); CHLORIDE LEVEL 102 MEQ/L (98-107); CHOLESTEROL LEVEL 109 MG/DL (<200); CHOLESTEROL RISK RATIO 2.794 (<5); CREATININE FOR GFR 1.18 MG/DL (0.70-1.30); FREE T4 1.11 NG/DL (0.76-1.46); GLOMERULAR FILTRATION RATE > 60.0 (>35); GLUCOSE, FASTING 86 MG/DL (70-100); HDL CHOLESTEROL 39 MG/DL (>40); LDL CHOLESTEROL 52 MG/DL (<100); NON-HDL-C 70 MG/DL; POTASSIUM SERUM 4.7 MEQ/L (3.5-5.1); SODIUM LEVEL 133 MEQ/L (136-145); TOTAL PROTEIN 7.4 GM/DL (6.4-8.2); TRIGLYCERIDES LEVEL 92 MG/DL (<150)
[2022-02-27 23:06] LABS: PSA TOTAL 0.5 ng/mL (0.0-4.0)
== END ==
LOC: M WUC 08:07
PROVIDERS: ATTEND Family Medicine
DX: I10 Essential (primary) hypertension (principal); E78.00 Pure hypercholesterolemia, unspecified; R35.0 Frequency of micturition

== ENCOUNTER → 2022-03-13 | Outpatient (CLI) | payer MEDICARE, OTHER ==
[2022-03-13 16:57] LABS: BASO % 0.6 % (0.0-1.0); EOS # 0.3 10^3/uL (0.0-0.5); EOS % 4.4 % (0.0-3.0); HEMATOCRIT 33.9 % (42.0-52.0); HEMOGLOBIN 11.1 g/dl (13.5-17.5); LYMPH # 1.6 10^3/uL (1.5-5.0); LYMPH % 22.9 % (24.0-44.0); MEAN CORPUSCULAR HEMOGLOBIN 30.9 pg (27.0-33.0); MEAN CORPUSCULAR HGB CONC 32.7 g/dl (32.0-36.5); MEAN CORPUSCULAR VOLUME 94.4 fl (80.0-96.0); MONO # 0.5 10^3/uL (0.0-0.8); NEUTROPHILS # 4.6 10^3/uL (1.5-8.5); PLATELET COUNT, AUTOMATED 158 10^3/uL (150-450); RED BLOOD COUNT 3.59 10^6/uL (4.30-6.10); WHITE BLOOD COUNT 7.1 10^3/uL (4.0-10.0)
[2022-03-13 17:36] LABS: CREATININE FOR GFR 1.36 MG/DL (0.70-1.30); GLOMERULAR FILTRATION RATE 53.3 (>35); PERCENT SATURATION 27.5 % (19.7-50.0); POTASSIUM SERUM 4.8 MEQ/L (3.5-5.1)
== END ==
LOC: M WUC 14:03
PROVIDERS: ATTEND Family Medicine
DX: D64.9 Anemia, unspecified (principal)

== ENCOUNTER → 2022-04-11 | Outpatient (CLI) | payer MEDICARE, OTHER | LOC: M RAD 12:02 | PROVIDERS: ATTEND Internal Medicine Cardiovascular Disease | DX: I65.23 Occlusion and stenosis of bilateral carotid arteries (principal) ==

== ENCOUNTER → 2022-05-28 | Outpatient (CLI) | payer MEDICARE, OTHER ==
[~2022-05-28] MED LIST changes: +COLE625T PO; +COLE625T17 PO; +ERGO500029 PO; +FURO20TA2 PO; +QUIN1TAB3 PO
== END ==
LOC: M LABSMTC 11:34
PROVIDERS: ATTEND Anesthesiology
DX: Z01.812 Encounter for preprocedural laboratory examination (principal); Z11.52 Encounter for screening for COVID-19

== ENCOUNTER 2022-05-31 06:43 | Day surgery (SDC) | payer MEDICARE, OTHER ==
[~2022-05-31] VITALS: Ht 170.2 cm; Wt 70.0 kg
[~2022-05-31 06:43] MED LIST changes: +FLORCAP6 PO; +NS 1,000 ML IV ONE; +VITMTA PO
[2022-05-31] MEDS ORDERED: GLYCOPYRROLATE INJ 0.2 MG/ML 2 ML VIAL As Ordered ONE (07:00)
[2022-05-31] MEDS ORDERED: propofoL 200 MG/20 ML VIAL As Ordered ONE (07:00)
[2022-05-31] MEDS ORDERED: LIDOCAINE 2% 100MG/5ML SDV (FOR ANES.) As Ordered ONE (07:00)
[2022-05-31] MEDS ORDERED: ePHEDrine SULFATE 25 MG/5 ML(5MG/ML) SYRINGE As Ordered ONE (07:58)
[2022-05-31 08:30] VITALS: BP 148/66
== END 2022-05-31 08:45 | disposition home or self-care (01) ==
LOC: M OPP 06:43
PROVIDERS: ATTEND Surgery
DX: K57.30 Diverticulosis of large intestine without perforation or abscess without bleeding (principal); D50.9 Iron deficiency anemia, unspecified; K62.5 Hemorrhage of anus and rectum; K29.70 Gastritis, unspecified, without bleeding; K29.80 Duodenitis without bleeding; Z86.010 Personal history of colon polyps; Z79.01 Long term (current) use of anticoagulants; Z79.82 Long term (current) use of aspirin; Z79.899 Other long term (current) drug therapy; I50.9 Heart failure, unspecified; I20.9 Angina pectoris, unspecified; I10 Essential (primary) hypertension; E78.00 Pure hypercholesterolemia, unspecified; Z87.442 Personal history of urinary calculi; I34.1 Nonrheumatic mitral (valve) prolapse; Z95.2 Presence of prosthetic heart valve

== ENCOUNTER → 2022-09-14 | Outpatient (CLI) | payer MEDICARE, OTHER ==
[~2022-09-14] MED LIST changes: -NS 1,000 ML IV ONE
[2022-09-14 11:10] LABS: BASO % 0.6 % (0.0-1.0); EOS # 0.2 10^3/uL (0.0-0.5); EOS % 2.4 % (0.0-3.0); HEMATOCRIT 35.2 % (42.0-52.0); HEMOGLOBIN 10.9 g/dl (13.5-17.5); LYMPH # 1.4 10^3/uL (1.5-5.0); LYMPH % 20.3 % (24.0-44.0); MEAN CORPUSCULAR HEMOGLOBIN 29.6 pg (27.0-33.0); MEAN CORPUSCULAR VOLUME 95.7 fl (80.0-96.0); MONO # 0.6 10^3/uL (0.0-0.8); NEUTROPHILS # 4.6 10^3/uL (1.5-8.5); NEUTROPHILS % 67.4 % (36.0-66.0); PLATELET COUNT, AUTOMATED 132 10^3/uL (150-450); RED BLOOD COUNT 3.68 10^6/uL (4.30-6.10); WHITE BLOOD COUNT 6.8 10^3/uL (4.0-10.0)
[2022-09-14 11:44] LABS: FREE T4 0.98 NG/DL (0.89-1.76); THYROID STIMULATING HORMONE 3.432 uIU/ML (0.55-4.78)
[2022-09-14 12:02] LABS: BILIRUBIN,TOTAL 0.9 MG/DL (0.3-1.2); CALCIUM LEVEL 8.8 MG/DL (8.3-10.6); CHOLESTEROL RISK RATIO 2.83 (<5); CREATININE FOR GFR 1.3 MG/DL (0.70-1.30); GLOMERULAR FILTRATION RATE 56.1 (>35); HDL CHOLESTEROL 32.1 MG/DL (>40); LDL CHOLESTEROL 47.7 MG/DL (<100); NON-HDL-C 58.9 MG/DL; TOTAL PROTEIN 7.1 G/DL (5.7-8.2)
== END ==
LOC: M WUC 08:02
PROVIDERS: ATTEND Nurse Practitioner Adult Health
DX: I10 Essential (primary) hypertension (principal); E78.00 Pure hypercholesterolemia, unspecified

== ENCOUNTER → 2022-11-13 | Outpatient (REF) | payer MEDICARE, OTHER ==
[2022-11-13 11:13] LABS: ALBUMIN 3.8 G/DL (3.2-5.2); BILIRUBIN,DIRECT 0.4 MG/DL (<0.4); TOTAL PROTEIN 6.6 G/DL (5.7-8.2)
== END ==
LOC: M LAB REF 10:08
PROVIDERS: ATTEND Nurse Practitioner Adult Health
DX: R94.5 Abnormal results of liver function studies (principal)

== ENCOUNTER → 2023-07-24 | Outpatient (CLI) | payer MEDICARE, OTHER ==
[2023-07-24 18:36] LABS: HEMATOCRIT 34.1 % (42.0-52.0); HEMOGLOBIN 11.1 g/dl (13.5-17.5); MEAN CORPUSCULAR HEMOGLOBIN 30.7 pg (27.0-33.0); MEAN CORPUSCULAR HGB CONC 32.6 g/dl (32.0-36.5); MEAN CORPUSCULAR VOLUME 94.5 fl (80.0-96.0); PLATELET COUNT, AUTOMATED 151 10^3/uL (150-450); RED BLOOD COUNT 3.61 10^6/uL (4.30-6.10); WHITE BLOOD COUNT 6.5 10^3/uL (4.0-10.0)
[2023-07-24 18:58] LABS: ALBUMIN 3.8 G/DL (3.2-5.2); BILIRUBIN,TOTAL 0.7 MG/DL (0.3-1.2); CALCIUM LEVEL 8.8 MG/DL (8.3-10.6); CREATININE FOR GFR 1.27 MG/DL (0.70-1.30); GLOMERULAR FILTRATION RATE 57.5 (>35); MAGNESIUM LEVEL 1.8 MG/DL (1.8-2.4); PERCENT SATURATION 24.6 % (19.7-50.0); POTASSIUM SERUM 4.5 MMOL/L (3.5-5.1); TOTAL PROTEIN 6.9 G/DL (5.7-8.2)
[2023-07-24 19:04] LABS: TOTAL 25(OH) VITAMIN D 111.8 NG/ML (20.0-100.0)
== END ==
LOC: M WUC 14:21
PROVIDERS: ATTEND Internal Medicine Gastroenterology
DX: K86.89 Other specified diseases of pancreas (principal); K86.3 Pseudocyst of pancreas; D64.9 Anemia, unspecified; E55.9 Vitamin D deficiency, unspecified

== ENCOUNTER → 2023-12-18 | Outpatient (CLI) | payer MEDICARE, OTHER ==
[~2023-12-18] MED LIST changes: -TIKO250C PO; +[UNRECOGNIZED DRUG - CODE] PO
[2023-12-18 13:07] LABS: BASO % 0.6 % (0.0-1.0); EOS # 0.1 10^3/uL (0.0-0.5); EOS % 1.4 % (0.0-3.0); HEMATOCRIT 29.3 % (42.0-52.0); HEMOGLOBIN 9.5 g/dl (13.5-17.5); LYMPH # 0.9 10^3/uL (1.5-5.0); LYMPH % 12.6 % (24.0-44.0); MEAN CORPUSCULAR HEMOGLOBIN 31.5 pg (27.0-33.0); MEAN CORPUSCULAR HGB CONC 32.4 g/dl (32.0-36.5); MONO # 0.5 10^3/uL (0.0-0.8); MONO % 6.9 % (2.0-8.0); NEUTROPHILS # 5.5 10^3/uL (1.5-8.5); NEUTROPHILS % 78.2 % (36.0-66.0); PLATELET COUNT, AUTOMATED 124 10^3/uL (150-450); RED BLOOD COUNT 3.02 10^6/uL (4.30-6.10); WHITE BLOOD COUNT 7.1 10^3/uL (4.0-10.0)
[2023-12-18 13:24] LABS: ERYTHROCYTE SEDIMENTATION RATE 7 mm/hr (0-20)
[2023-12-18 13:42] LABS: C REACTIVE PROTEIN QUANTITATIV < 0.40 MG/DL (<1.0)
[2023-12-18 13:43] LABS: CPK CREATINE PHOSPHOKINASE 81 U/L (46-171); TOTAL IRON BINDING CAPACITY 288 UG/DL (250-425)
[2023-12-18 13:44] LABS: ALBUMIN 3.7 G/DL (3.2-5.2); ALKALINE PHOSPHATASE 77 U/L (46-116); ALT/SGPT 23 U/L (7.0-40); AST/SGOT 14 U/L (<34); BILIRUBIN,TOTAL 0.8 MG/DL (0.3-1.2); BLOOD UREA NITROGEN 19 MG/DL (9-23); CALCIUM LEVEL 8.5 MG/DL (8.3-10.6); CARBON DIOXIDE LEVEL 25 MMOL/L (20-31); CHLORIDE LEVEL 113 MMOL/L (98-107); CK-MB VALUE MASS 3.1 NG/ML (<3.6); CREATININE FOR GFR 1.23 MG/DL (0.70-1.30); GLOMERULAR FILTRATION RATE 59.5 (>35); GLUCOSE, FASTING 126 MG/DL (74-106); IRON (FE) 49 UG/DL (65-175); MB/CK RELATIVE INDEX 3.82 (< OR =4); POTASSIUM SERUM 4.8 MMOL/L (3.5-5.1); SODIUM LEVEL 143 MMOL/L (136-145); TOTAL PROTEIN 6.4 G/DL (5.7-8.2)
[2023-12-18 13:45] LABS: VITAMIN B12 LEVEL 817 PG/ML (211-911)
[2023-12-18 13:46] LABS: FERRITIN 125.6 NG/ML (10.5-307.3)
== END ==
LOC: M PLAIMG 11:28
PROVIDERS: ATTEND Family Medicine
DX: R06.02 Shortness of breath (principal); D64.9 Anemia, unspecified; J98.11 Atelectasis

== ENCOUNTER → 2024-01-01 | Outpatient (CLI) | payer MEDICARE, OTHER ==
[2024-01-01 14:14] LABS: CALCIUM LEVEL 8.9 MG/DL (8.3-10.6); CREATININE FOR GFR 1.45 MG/DL (0.70-1.30); GLOMERULAR FILTRATION RATE 49.2 (>35); POTASSIUM SERUM 4.5 MMOL/L (3.5-5.1)
== END ==
LOC: M PLALAB 09:47
PROVIDERS: ATTEND Family Medicine
DX: I50.9 Heart failure, unspecified (principal)

== ENCOUNTER → 2024-05-09 | Outpatient (CLI) | payer MEDICARE, OTHER ==
[2024-05-09 10:11] LABS: BASO % 0.3 % (0.0-1.0); EOS # 0.1 10^3/uL (0.0-0.5); EOS % 1.8 % (0.0-3.0); HEMATOCRIT 32.6 % (42.0-52.0); HEMOGLOBIN 10.4 g/dl (13.5-17.5); LYMPH # 1.1 10^3/uL (1.5-5.0); LYMPH % 15.9 % (24.0-44.0); MEAN CORPUSCULAR HEMOGLOBIN 30.6 pg (27.0-33.0); MEAN CORPUSCULAR HGB CONC 31.9 g/dl (32.0-36.5); MEAN CORPUSCULAR VOLUME 95.9 fl (80.0-96.0); MONO # 0.5 10^3/uL (0.0-0.8); MONO % 6.8 % (2.0-8.0); NEUTROPHILS # 5.3 10^3/uL (1.5-8.5); NEUTROPHILS % 74.8 % (36.0-66.0); PLATELET COUNT, AUTOMATED 135 10^3/uL (150-450); WHITE BLOOD COUNT 7.1 10^3/uL (4.0-10.0)
[2024-05-09 10:43] LABS: ALBUMIN 3.8 G/DL (3.2-5.2); BILIRUBIN,TOTAL 0.8 MG/DL (0.3-1.2); CALCIUM LEVEL 9.2 MG/DL (8.3-10.6); CHOLESTEROL RISK RATIO 3.14 (<5); CREATININE FOR GFR 1.28 MG/DL (0.70-1.30); GLOMERULAR FILTRATION RATE 56.9 (>35); HDL CHOLESTEROL 36.2 MG/DL (>40); LDL CHOLESTEROL 60.2 MG/DL (<100); NON-HDL-C 77.8 MG/DL; POTASSIUM SERUM 4.5 MMOL/L (3.5-5.1); TOTAL PROTEIN 7.2 G/DL (5.7-8.2)
[2024-05-09 10:44] LABS: THYROID STIMULATING HORMONE 3.609 uIU/ML (0.55-4.78)
[2024-05-09 10:45] LABS: FREE T4 1.08 NG/DL (0.89-1.76)
== END ==
LOC: M LAB 08:36
PROVIDERS: ATTEND Nurse Practitioner Adult Health
DX: D50.9 Iron deficiency anemia, unspecified (principal); I11.0 Hypertensive heart disease with heart failure; E78.00 Pure hypercholesterolemia, unspecified; I50.9 Heart failure, unspecified

== ENCOUNTER 2024-06-18 11:12 | Inpatient (IN) | payer MEDICARE, OTHER ==
[~2024-06-18] VITALS: Ht 170.2 cm; Wt 68.1 kg
[2024-06-18] MEDS ORDERED: WARF-18 PO (11:51)
[2024-06-18] MEDS ORDERED: RAMI10CA64 PO (11:51)
[2024-06-18] MEDS ORDERED: LIPI20TA PO (11:51)
[2024-06-18] MEDS ORDERED: WARF-23 PO (11:51)
[2024-06-18] MEDS ORDERED: ECOT81TA5 PO (11:51)
[2024-06-18] MEDS ORDERED: PANT20TA6 PO (11:51)
[2024-06-18] MEDS ORDERED: TYLE650T38 PO (11:51)
[2024-06-18] MEDS ORDERED: FERR325T3 PO (11:51)
[2024-06-18] MEDS ORDERED: AMLO1TAB24 PO (11:51)
[2024-06-18 11:53] LABS: HEMATOCRIT 32.9 % (42.0-52.0); HEMOGLOBIN 10.7 g/dl (13.5-17.5); LYMPH # 0.9 10^3/uL (1.5-5.0); LYMPH % 7.7 % (24.0-44.0); MEAN CORPUSCULAR HEMOGLOBIN 30.7 pg (27.0-33.0); MEAN CORPUSCULAR HGB CONC 32.5 g/dl (32.0-36.5); MEAN CORPUSCULAR VOLUME 94.5 fl (80.0-96.0); MONO # 0.9 10^3/uL (0.0-0.8); NEUTROPHILS # 9.2 10^3/uL (1.5-8.5); NEUTROPHILS % 83.3 % (36.0-66.0); PLATELET COUNT, AUTOMATED 188 10^3/uL (150-450); RED BLOOD COUNT 3.48 10^6/uL (4.30-6.10)
[2024-06-18 12:07] LABS: INR 2.82; PROTHROMBIN TIME 29.6 SECONDS (12.5-14.5)
[2024-06-18 12:28] LABS: BILIRUBIN,DIRECT 0.4 MG/DL (<0.4); BILIRUBIN,TOTAL 0.9 MG/DL (0.3-1.2); CALCIUM LEVEL 9.2 MG/DL (8.3-10.6); CK-MB VALUE MASS 4.2 NG/ML (<3.6); CREATININE FOR GFR 1.36 MG/DL (0.70-1.30); MB/CK RELATIVE INDEX 3.33 (< OR =4); POTASSIUM SERUM 4.4 MMOL/L (3.5-5.1); THYROID STIMULATING HORMONE 1.48 uIU/ML (0.55-4.78); TOTAL PROTEIN 7.6 G/DL (5.7-8.2)
[2024-06-18 12:30] LABS: FREE T4 1.32 NG/DL (0.89-1.76)
[2024-06-18] MEDS: METOPROLOL 5 MG/5 ML VIAL IV SCH (12:40)
[2024-06-18 13:19] LABS: CK-MB VALUE MASS 4.2 NG/ML (<3.6); MB/CK RELATIVE INDEX 3.75 (< OR =4)
[2024-06-18] MEDS: FUROSEMIDE 40MG/4ML VIAL IV ONE (14:12)
[2024-06-18] MEDS ORDERED: FERR32TA PO (15:17)
[2024-06-18] MEDS ORDERED: ESSETAB4 PO (15:17)
[2024-06-18] MEDS ORDERED: FLORCAP6 PO (15:17)
[2024-06-18 15:20] LABS: PROCALCITONIN 0.08 ng/ml
[2024-06-18] MEDS ORDERED: HOME MED LIST COMPLETE! XX SCH (15:20)
[2024-06-18] MEDS: CARVedilol 6.25 MG TAB PO ONE (16:58)
[2024-06-18] MEDS: cefTRIAXone SOD 1 GM in DEXTROSE 5% (D5W) ADV/MINI-BAG 50 ML IV SCH (18:07)
[2024-06-18 20:38] VITALS: BP 137/76; TEMP 97.3; O2SAT 98
[2024-06-18] MEDS: DOXYCYCLINE HYCLATE 100MG TABLET PO SCH (21:13)
[2024-06-18] MEDS: CARVedilol 12.5 MG TAB PO SCH (21:13)
[2024-06-18] MEDS: COLESEVELAM 625 MG TAB (WELCHOL) PO SCH (21:14)
[2024-06-18] MEDS: amLODIPine 5 MG TAB PO SCH (21:14)
[2024-06-18] MEDS: ATORVASTATIN 20 MG TAB PO SCH (21:14)
[2024-06-18 23:05] VITALS: BP 130/79; TEMP 97.3; O2SAT 98
[2024-06-19 03:15] VITALS: BP 121/63; TEMP 98.3; O2SAT 97
[2024-06-19 07:02] LABS: HEMATOCRIT 29.8 % (42.0-52.0); HEMOGLOBIN 9.9 g/dl (13.5-17.5); MEAN CORPUSCULAR HEMOGLOBIN 30.9 pg (27.0-33.0); MEAN CORPUSCULAR HGB CONC 33.2 g/dl (32.0-36.5); MEAN CORPUSCULAR VOLUME 93.1 fl (80.0-96.0); PLATELET COUNT, AUTOMATED 189 10^3/uL (150-450); WHITE BLOOD COUNT 11.8 10^3/uL (4.0-10.0)
[2024-06-19 07:25] LABS: CALCIUM LEVEL 8.8 MG/DL (8.3-10.6); CREATININE FOR GFR 1.31 MG/DL (0.70-1.30); GLOMERULAR FILTRATION RATE 55.4 (>35); POTASSIUM SERUM 4.2 MMOL/L (3.5-5.1)
[2024-06-19 07:40] VITALS: BP 137/80; TEMP 97.4; O2SAT 97
[2024-06-19 08:02] LABS: INR 2.82; PROTHROMBIN TIME 29.6 SECONDS (12.5-14.5)
[2024-06-19] MEDS: SPIRONOLACTONE 12.5MG PER 1/2 TABLET PO SCH (08:33)
[2024-06-19] MEDS: FERROUS GLUCONATE 324 MG TAB PO SCH (08:33)
[2024-06-19] MEDS: PANTOPRAZOLE 20 MG TAB PO SCH (08:33)
[2024-06-19 08:34] VITALS: BP 137/80
[2024-06-19] MEDS: CYANOCOBALAMIN 500 MCG TAB PO SCH (08:34)
[2024-06-19] MEDS ORDERED: CEFP200T PO (11:22)
[2024-06-19] MEDS ORDERED: CARV12.5 PO (11:22)
[2024-06-19] MEDS ORDERED: DOXY-440 PO (11:22)
[2024-06-19] MEDS ORDERED: WARFARIN SOD 2.5MG TAB PO SCH (17:00)
[2024-06-20] MEDS ORDERED: ASPIRIN 81MG ENTERIC TABLET PO SCH (09:00)
== END 2024-06-19 12:56 | disposition home or self-care (01) | DRG 291 ==
LOC: M ED 11:12 → M ED INP 14:37 → M PCU 20:38
PROVIDERS: ADMIT Internal Medicine; ATTEND Internal Medicine
DX: I13.0 Hypertensive heart and chronic kidney disease with heart failure and stage 1 through stage 4 chronic kidney disease, or unspecified chronic kidney disease (principal); J18.9 Pneumonia, unspecified organism; I50.23 Acute on chronic systolic (congestive) heart failure; K86.2 Cyst of pancreas; I48.91 Unspecified atrial fibrillation; D50.9 Iron deficiency anemia, unspecified; N18.2 Chronic kidney disease, stage 2 (mild); I25.10 Atherosclerotic heart disease of native coronary artery without angina pectoris; K21.9 Gastro-esophageal reflux disease without esophagitis; Z95.2 Presence of prosthetic heart valve; Z79.01 Long term (current) use of anticoagulants; Z85.828 Personal history of other malignant neoplasm of skin; I09.89 Other specified rheumatic heart diseases; K76.89 Other specified diseases of liver; Z79.899 Other long term (current) drug therapy; Z79.82 Long term (current) use of aspirin

== ENCOUNTER → 2024-06-23 | Outpatient (CLI) | payer MEDICARE, OTHER ==
[~2024-06-23] MED LIST changes: +AMLO1TAB24 PO; +CEFP200T PO; +DOXY-440 PO; +ECOT81TA5 PO; +ESSETAB4 PO; +FERR325T3 PO; +FERR32TA PO; +LIPI20TA PO; +PANT20TA6 PO; +RAMI10CA64 PO; +TYLE650T38 PO; +WARF-23 PO
[2024-06-23 19:47] LABS: PERCENT SATURATION 19.5 % (19.7-50.0)
== END ==
LOC: M WUC 11:41
PROVIDERS: ATTEND Internal Medicine Cardiovascular Disease
DX: D64.9 Anemia, unspecified (principal)

== ENCOUNTER → 2024-07-06 | Outpatient (CLI) | payer MEDICARE, OTHER | LOC: M RAD 10:24 | PROVIDERS: ATTEND Nurse Practitioner Adult Health | DX: J18.9 Pneumonia, unspecified organism (principal); R91.8 Other nonspecific abnormal finding of lung field; J98.11 Atelectasis; I51.7 Cardiomegaly; I25.10 Atherosclerotic heart disease of native coronary artery without angina pectoris; K76.89 Other specified diseases of liver ==

== ENCOUNTER → 2024-09-04 | Outpatient (CLI) | payer MEDICARE, OTHER ==
[2024-09-04 13:32] LABS: CALCIUM LEVEL 8.8 MG/DL (8.3-10.6); CREATININE FOR GFR 1.4 MG/DL (0.70-1.30); GLOMERULAR FILTRATION RATE 51.3 (>35); POTASSIUM SERUM 4.7 MMOL/L (3.5-5.1)
== END ==
LOC: M WUC 08:18
PROVIDERS: ATTEND Nurse Practitioner Adult Health
DX: I50.23 Acute on chronic systolic (congestive) heart failure (principal)

== ENCOUNTER → 2024-09-25 | Outpatient (CLI) | payer MEDICARE, OTHER ==
[2024-09-25 15:33] LABS: CALCIUM LEVEL 8.7 MG/DL (8.3-10.6); CREATININE FOR GFR 1.49 MG/DL (0.70-1.30); GLOMERULAR FILTRATION RATE 45.7 (>35); POTASSIUM SERUM 4.4 MMOL/L (3.5-5.1)
== END ==
LOC: M WUC 12:34
PROVIDERS: ATTEND Nurse Practitioner Adult Health
DX: I50.23 Acute on chronic systolic (congestive) heart failure (principal)

== ENCOUNTER → 2024-10-15 | Outpatient (CLI) | payer MEDICARE, OTHER | LOC: M WUC 11:40 | PROVIDERS: ATTEND Nurse Practitioner Adult Health | DX: R14.0 Abdominal distension (gaseous) (principal) ==

== ENCOUNTER → 2025-03-25 | Outpatient (CLI) | payer MEDICARE, OTHER ==
[~2025-03-25] MED LIST changes: +ERGO125013 PO; -VITA500045 PO; -VITA500T17 PO; +VITA500T8 PO
[2025-03-25 15:16] LABS: BASO # 0.0 10^3/uL (0.0-0.2); BASO % 0.5 % (0.0-1.0); EOS # 0.2 10^3/uL (0.0-0.5); EOS % 2.9 % (0.0-3.0); LYMPH # 0.8 10^3/uL (1.5-5.0); LYMPH % 12.7 % (24.0-44.0); MONO # 0.4 10^3/uL (0.0-0.8); MONO % 6.2 % (2.0-8.0); NEUTROPHILS # 4.8 10^3/uL (1.5-8.5); NEUTROPHILS % 77.5 % (36.0-66.0); PLATELET COUNT, AUTOMATED 111 10^3/uL (150-450)
[2025-03-25 15:34] LABS: PSA SCREENING 0.42 NG/ML (< 4.00)
[2025-03-25 15:36] LABS: IRON (FE) 43.0 UG/DL (65-175); PERCENT SATURATION 14.1 % (19.7-50.0)
[2025-03-25 15:37] LABS: ALT/SGPT 23.0 U/L (7.0-40); AST/SGOT 20.0 U/L (<34); CALCIUM LEVEL 8.8 MG/DL (8.3-10.6); CARBON DIOXIDE LEVEL 24.0 MMOL/L (20-31); CHLORIDE LEVEL 113.0 MMOL/L (98-107); CHOLESTEROL LEVEL 91.0 MG/DL (<200); CHOLESTEROL RISK RATIO 2.42 (<5); CREATININE FOR GFR 1.33 MG/DL (0.70-1.30); GLOMERULAR FILTRATION RATE 52.1 (>35); LDL CHOLESTEROL 43.6 MG/DL (<100); NON-HDL-C 53.4 MG/DL; POTASSIUM SERUM 4.8 MMOL/L (3.5-5.1); SODIUM LEVEL 146.0 MMOL/L (136-145); TRIGLYCERIDES LEVEL 49.0 MG/DL (<150)
[2025-03-25 15:39] LABS: FREE T4 1.08 NG/DL (0.89-1.76)
== END ==
LOC: M WUC 08:25
PROVIDERS: ATTEND Nurse Practitioner Adult Health
DX: Z12.5 Encounter for screening for malignant neoplasm of prostate (principal); I48.0 Paroxysmal atrial fibrillation; I50.32 Chronic diastolic (congestive) heart failure; E78.00 Pure hypercholesterolemia, unspecified; D50.9 Iron deficiency anemia, unspecified; N18.31 Chronic kidney disease, stage 3a; I13.0 Hypertensive heart and chronic kidney disease with heart failure and stage 1 through stage 4 chronic kidney disease, or unspecified chronic kidney disease
CPT/HCPCS: 36415; 80053; 80061; 83550; 83880; 84439; 84443; 85025; G0103

== ENCOUNTER 2025-04-08 14:29 | Outpatient (CLI) | payer MEDICARE, OTHER ==
[~2025-04-08] VITALS: Ht 170.2 cm; Wt 69.0 kg
[~2025-04-08 14:29] MED LIST changes: +ALBUTEROL SULFATE 2.5 MG/0.5 ML INH CONCENTRATE NEB SOLN INH PRN; +EPINEPHrine INJ 1 MG/ML 1ML AMP IM PRN; +diphenhydrAMINE 50 MG/ML VIAL IV PRN
[2025-04-08] MEDS: FERRIC CARBOXYMALTOSE 750 MG (VIAL MATE) IN 100ML NS IV ONE (15:01)
[2025-04-08 15:13] VITALS: BP 160/65; O2SAT 99
[2025-04-08 15:41] VITALS: BP 163/73; O2SAT 100
== END 2025-04-08 15:45 | disposition home or self-care (01) ==
LOC: M INFU 14:29
PROVIDERS: ATTEND Nurse Practitioner Adult Health
DX: D50.9 Iron deficiency anemia, unspecified (principal)
CPT/HCPCS: 96365; J1439

== ENCOUNTER 2025-04-21 07:00 | Outpatient (CLI) | payer MEDICARE, OTHER ==
[~2025-04-21] VITALS: Ht 170.2 cm; Wt 69.1 kg
[~2025-04-21 07:00] MED LIST changes: -ALBUTEROL SULFATE 2.5 MG/0.5 ML INH CONCENTRATE NEB SOLN INH PRN; -EPINEPHrine INJ 1 MG/ML 1ML AMP IM PRN; -diphenhydrAMINE 50 MG/ML VIAL IV PRN
[2025-04-21] MEDS ORDERED: diphenhydrAMINE 50 MG/ML VIAL IV PRN (07:01)
[2025-04-21] MEDS ORDERED: EPINEPHrine INJ 1 MG/ML 1ML AMP IM PRN (07:01)
[2025-04-21] MEDS ORDERED: ALBUTEROL SULFATE 2.5 MG/0.5 ML INH CONCENTRATE NEB SOLN INH PRN (07:01)
[2025-04-21 07:05] VITALS: BP 132/64; O2SAT 96
[2025-04-21] MEDS: FERRIC CARBOXYMALTOSE 750 MG (VIAL MATE) IN 100ML NS IV ONE (07:20)
[2025-04-21 07:55] VITALS: BP 125/63; O2SAT 99
== END 2025-04-21 07:55 | disposition home or self-care (01) ==
LOC: M INFU 07:00
PROVIDERS: ATTEND Nurse Practitioner Adult Health
DX: D50.9 Iron deficiency anemia, unspecified (principal)
CPT/HCPCS: 96365; J1439

== ENCOUNTER → 2025-05-03 | Outpatient (CLI) | payer MEDICARE, OTHER ==
[2025-05-03 19:00] LABS: BASO # 0.0 10^3/uL (0.0-0.2); BASO % 0.7 % (0.0-1.0); EOS # 0.3 10^3/uL (0.0-0.5); EOS % 5.6 % (0.0-3.0); LYMPH # 0.8 10^3/uL (1.5-5.0); LYMPH % 13.6 % (24.0-44.0); MONO # 0.5 10^3/uL (0.0-0.8); MONO % 8.8 % (2.0-8.0); NEUTROPHILS # 4.0 10^3/uL (1.5-8.5); NEUTROPHILS % 70.9 % (36.0-66.0); PLATELET COUNT, AUTOMATED 103 10^3/uL (150-450)
[2025-05-03 19:05] LABS: IRON (FE) 61.0 UG/DL (65-175); PERCENT SATURATION 21.6 % (19.7-50.0)
== END ==
LOC: M PLALAB 14:57
PROVIDERS: ATTEND Family Medicine
DX: D50.9 Iron deficiency anemia, unspecified (principal)

== ENCOUNTER → 2025-05-31 | Outpatient (CLI) | payer MEDICARE, OTHER ==
[2025-05-31 12:54] LABS: ALT/SGPT 17.0 U/L (7.0-40); AST/SGOT 23.0 U/L (<34); CALCIUM LEVEL 9.7 MG/DL (8.3-10.6); CARBON DIOXIDE LEVEL 27.0 MMOL/L (20-31); CHLORIDE LEVEL 108.0 MMOL/L (98-107); CREATININE FOR GFR 1.86 MG/DL (0.70-1.30); GLOMERULAR FILTRATION RATE 34.8 (>35); IRON (FE) 79.0 UG/DL (65-175); PERCENT SATURATION 29.3 % (19.7-50.0); POTASSIUM SERUM 5.1 MMOL/L (3.5-5.1); SODIUM LEVEL 144.0 MMOL/L (136-145)
[2025-05-31 13:02] LABS: BASO # 0.0 10^3/uL (0.0-0.2); BASO % 0.7 % (0.0-1.0); EOS # 0.3 10^3/uL (0.0-0.5); EOS % 5.0 % (0.0-3.0); LYMPH # 0.8 10^3/uL (1.5-5.0); LYMPH % 13.1 % (24.0-44.0); MONO # 0.5 10^3/uL (0.0-0.8); MONO % 8.1 % (2.0-8.0); NEUTROPHILS # 4.2 10^3/uL (1.5-8.5); NEUTROPHILS % 72.8 % (36.0-66.0); PLATELET COUNT, AUTOMATED 121 10^3/uL (150-450)
== END ==
LOC: M WUC 08:30
PROVIDERS: ATTEND Family Medicine
DX: D50.9 Iron deficiency anemia, unspecified (principal)

== ENCOUNTER → 2025-06-15 | Outpatient (REF) | payer MEDICARE, OTHER ==
[2025-06-15 15:51] LABS: CALCIUM LEVEL 9.2 MG/DL (8.3-10.6); CARBON DIOXIDE LEVEL 24.0 MMOL/L (20-31); CHLORIDE LEVEL 109.0 MMOL/L (98-107); CREATININE FOR GFR 1.67 MG/DL (0.70-1.30); GLOMERULAR FILTRATION RATE 39.6 (>35); POTASSIUM SERUM 5.0 MMOL/L (3.5-5.1); SODIUM LEVEL 140.0 MMOL/L (136-145)
== END ==
LOC: M LAB REF 11:04
PROVIDERS: ATTEND Family Medicine
DX: N17.9 Acute kidney failure, unspecified (principal)